=== PATIENT | male | born 1935 | race Caucasian/White ===

== ENCOUNTER 2018-06-26 12:37 | Inpatient (IN) ==
--- NOTE | 2018-06-26 12:57 | ED ---
HPI General Chief Complaint: Syncope Stated Complaint: hypertension Time Seen by Provider: 06/26/18 12:39 Source: patient and EMS Mode of arrival: EMS Limitations: no limitations History of Present Illness HPI Narrative: The patient is a 82-year-old male who presents to the emergency department via EMS for low blood pressure, lightheadedness, and dizziness. The patient has a history of recent AAA repair at [facility] in [place], [place]. The patient had a somewhat complicated course after the procedure and was subsequently placed at [facility]. The patient states he just got discharged yesterday. The patient states they did have trouble with his blood pressure in the hospital, states it would go "up and down ", he was taken off of Lopressor several days ago. The patient states he was discharged home yesterday, had some intermittent lightheadedness and dizziness throughout the day, and when the home health care nurse took his blood pressure was slightly low. The patient states he was lightheaded at that time, it is currently resolved. The patient does state he stumbled and fell, striking the left lateral rib cage yesterday with a surgical scars in place. He does note mild discomfort over the affected area but denies any significant bruising or bleeding. Symptoms are mild to moderate and intermittent. MD complaint: Reports dizziness and lightheadedness Onset (ago): minute(s) Timing: waxing/waning Description: Reports lightheadedness History of similar episodes: Yes History of trauma: Yes Severity: moderate Relieving factors: rest Exacerbating factors: position Related Data Previous Rx's Medication Instructions Recorded aspirin 81 mg PO DAILY 30 Days #30 tab 06/25/18 cholecalciferol (vitamin D3) 5,000 unit PO DAILY 30 Days #30 cap 06/25/18 digoxin 125 mcg PO DAILY 30 Days #30 tab 06/25/18 magnesium hydroxide [Milk of 30 ml PO Q12H PRN 30 Days ml 06/25/18 Magnesia] melatonin 5 mg PO HS PRN 30 Days tab 06/25/18 midodrine 10 mg PO TID@0700,1200,1700 30 06/25/18 Days tab oxybutynin chloride 5 mg PO BID 30 Days #60 tab 06/25/18 pantoprazole 40 mg PO DAILY 30 Days #30 tab 06/25/18 sennosides-docusate sodium [Senna 1 tab PO BID 30 Days #60 tab 06/25/18 Plus] tamsulosin 0.4 mg PO HS 30 Days #30 cap 06/25/18 warfarin [Coumadin] 5 mg PO DAILY@1600 30 Days tab 06/25/18 Allergies Allergy/AdvReac Type Severity Reaction Status Date / Time No Known Allergies Allergy Verified 06/04/18 19:43 Review of Systems ROS: all other systems reviewed are negative [facility] Social History Social History Substance History: No History of Abuse Second Hand Smoke Exposure: No Smoking Status: Former smoker Tobacco Type: Cigarettes How Often Do You Have a Drink Containing Alcohol: Never Recent Travel in [facility] within the Last 8 Weeks: No Recent Out of Country Travel within the Last 8 Weeks: No Immunization History Tetanus Immunization: Unsure Exam Narrative Exam Narrative: GENERAL: Awake, alert, very pleasant 82-year-old male who appears his stated age and is in no acute respiratory distress. SKIN: Focused skin assessment warm/dry. HEAD: Atraumatic. Normocephalic. EYES: Pupils equal and round. No scleral icterus. No injection or drainage. ENT: No nasal bleeding or discharge. Mucous membranes pink and moist. NECK: Trachea midline. No JVD. CARDIOVASCULAR: Regular rate and rhythm. Holosystolic murmur noted. Well- healed sternal scar. RESPIRATORY: No accessory muscle use. Clear to auscultation. Breath sounds equal bilaterally. GASTROINTESTINAL: Abdomen soft, healing scar in the left flank. Mild tenderness but no obvious ecchymosis or bleeding noted. MUSCULOSKELETAL: No obvious deformities. No clubbing. No cyanosis. No edema. LUCERO hose lower extremities bilaterally. NEUROLOGICAL: Awake and alert. No obvious cranial nerve deficits. Motor grossly within normal limits. Normal speech. PSYCHIATRIC: Appropriate mood and affect; insight and judgment normal. Course Initial Documented Vital Signs Temperature 97.9 F 06/26/18 12:51 Pulse Rate 75 06/26/18 12:51 Respiratory Rate 17 06/26/18 12:51 Blood Pressure 127/62 06/26/18 12:51 Pulse Oximetry 99 06/26/18 12:51 Last Documented Vital Signs Temperature 97.3 F L 06/27/18 04:00 Pulse Rate 93 H 06/27/18 04:00 Respiratory Rate 18 06/27/18 04:00 Blood Pressure 160/71 H 06/27/18 04:00 Pulse Oximetry 94 L 06/27/18 04:00 Sign Out Sign Out Data: Patient Sign Out occurred on 06/26/18 at 15:56. Patient's care was discussed, and care was transferred from Ariel Contreras MD to Bahman Cole MD. Sign Out Comment: 82-year-old male with orthostatic hypotension, lightheadedness , and dizziness who is status post recent AAA repair if CT of the abdomen and pelvis reveals no hemorrhage or acute retroperitoneal hemorrhage, patient should be admitted for IV fluids and adjustment of his blood pressure medications. Last updated by Ariel Contreras MD at 06/26/18 15:00 Post-Handoff Eval: , dig level 1.3.Patient care assumed by me Dr. Cole from Dr. Contreras at 1500, this is an 82-year-old male presents to the emergency department orthostatic having significant weakness and fluctuating blood pressures ever since discharge from [facility] several weeks ago to our institution. The patient had AAA repair at [facility] by Dr. Restrepo on May 14, 2018. Apparently the patient's postoperative period was complicated and needed tube drainage of some bleeding. He had to have a reexploration as well to help control bleeding. Patient is unsure exactly where he is bleeding from but demonstrates to me the site of his tube drainage appears to be posterior and below the diaphragm and probably is draining the retroperitoneal space. The patient has received 1500 cc of normal saline in the emergency department but before that it was described to me the patient was having significant orthostatic symptoms and when he went from a lying to a sitting became pale cool diaphoretic and appeared as though he was in a pass out with heart rate increasing significantly. Patient does have an acute kidney injury with a creatinine of 1.7 today, his creatinine [facility] but it appears as though his baseline is closer to 1.1. Currently he is feeling better and appears well his blood pressure on my assessment is in the 150 systolic his heart rate is in the low 100s and high 90s. He is joking with me and appears to be in no obvious distress. His labs show a white count of 7, no left shift, electrolytes unremarkable, dig level of 1.3. Patient's other medications were reviewed, the patient is on Coumadin, tamsulosin, oxybutynin, Midrin. Initial plan was to follow-up with CAT scan if it shows no significant abnormality and the patient can be admitted to the hospital for acute kidney injury and gentle rehydration as well as management of his blood pressure medications. After review of the patient's CT scan of the abdomen the patient does have a retroperitoneal fluid collection radiologist thinks seroma. I have reviewed the films and this appears to abut the aorta. Certainly this could be postoperative seroma and the patient may be recovering normally however the patient should be discussed with the surgeon who knows him prior to admission to our hospital and we need to consider transferring the patient. Patient also has infiltrate and effusion of the left lower lobe. He has not had any cough congestion no fevers. According to patient he was supposed to follow-up with Dr. Abbott but has not yet established has an appointment with Dr. Restrepo in the near future. Dr. Abbott was on vacation given the upcoming holidays so I will discuss patient with Dr. Restrepo for further recommendations and possible transfer. After discussed with Dr. Restrepo he states that the patient could be followed up with Dr. Abbott or whoever is on-call for his service. The patient's preference is to stay locally as he does live here. Ultimately patient was discussed with Dr. Wolf who is on-call for the group and he is willing to follow the patient here as a patient in our opinion probably needs more medical turnips and a surgical intervention. He has received 1500 cc of fluid, will be discussed with DK. Medical Decision Making MDM Narrative Medical decision making narrative: IV was established, labs are drawn and sent, and the patient was placed on cardiac telemetry monitoring and continuous pulse oximetry monitoring. EKG was ordered and interpreted. CT of the abdomen and pelvis with IV contrast was ordered to evaluate for possible postoperative hemorrhage. The patient was placed on IV fluids and orthostatic vital signs were obtained. The patient's orthostatic vital signs were positive, when he went from lying to sitting his pulse went from the 80s-115, the patient's blood pressure dropped to a systolic near 100. The patient was unable to stand upright as he became diaphoretic and pale. Therefore, the patient was administered an IV fluid bolus. Medical Screen Exam Complete: Yes Emergency Medical Condition: Yes Differential Diagnosis Differential Diagnosis: Differential diagnosis includes medication side effect, orthostatic hypotension, symptomatic anemia, aortic stenosis, postoperative hemorrhage, retroperitoneal hemorrhage, arrhythmia, dehydration, acute kidney injury. Lab Data Result diagrams: 06/27/18 05:45 06/26/18 12:58 Lab Results 06/26/18 06/26/18 06/26/18 Range/Units 12:58 12:58 12:58 WBC 7.2 (4.0-11.0) th/mm3 RBC 3.51 L (4.50-5.90) mil/mm3 Hgb 11.3 L (13.0-17.0) gm/dL Hct 33.7 L (39.0-51.0) % MCV 95.9 (80.0-100.0) fL MCH 32.1 (27.0-34.0) pg MCHC 33.5 (32.0-36.0) % RDW 15.9 (11.6-17.2) % Plt Count 214 (150-450) th/mm3 MPV 8.1 (7.0-11.0) fL Neut % (Auto) 74.4 H (16.0-70.0) % Lymph % (Auto) 14.6 (9.0-44.0) % Casey % (Auto) 9.7 H (0.0-8.0) % Eos % (Auto) 0.5 (0.0-4.0) % Baso % (Auto) 0.8 (0.0-2.0) % Neut # (Auto) 5.3 (1.8-7.7) th/mm3 Lymph # (Auto) 1.0 (1.0-4.8) th/mm3 Casey # (Auto) 0.7 (0.0-0.9) th/mm3 Eos # (Auto) 0.0 (0.0-0.4) th/mm3 Baso # (Auto) 0.1 (0.0-0.2) th/mm3 WBC Differential . Differential Comment Auto diff final PT 28.3 H (9.8-11.6) sec INR 2.8 Ratio APTT 37.3 H (23.4-31.7) sec Sodium 139 (136-145) meq/L Potassium 4.6 (3.5-5.1) meq/L Chloride 109 H (98-107) meq/L Carbon Dioxide 23.8 (21.0-32.0) meq/L Anion Gap 6 (5-15) meq/L BUN 21 H (7-18) mg/dL Creatinine 1.74 H (0.60-1.30) mg/dL Estimated GFR 38 L (>89) mL/min Random Glucose 138 H (74-106) mg/dL Calcium 8.2 L (8.5-10.1) mg/dL Magnesium 1.9 (1.5-2.5) mg/dL Total Bilirubin 0.3 (0.2-1.0) mg/dL AST 36 (15-37) U/L ALT 20 (12-78) U/L Alkaline Phosphatase 150 H (45-117) U/L Total Protein 6.4 (6.4-8.2) g/dL Albumin 2.6 L (3.4-5.0) g/dL Digoxin 1.3 (0.8-2.0) ng/mL 06/27/18 06/27/18 Range/Units 05:45 05:45 WBC 4.9 (4.0-11.0) th/mm3 RBC 3.22 L (4.50-5.90) mil/mm3 Hgb 10.2 L (13.0-17.0) gm/dL Hct 30.7 L (39.0-51.0) % MCV 95.2 (80.0-100.0) fL MCH 31.6 (27.0-34.0) pg MCHC 33.2 (32.0-36.0) % RDW 15.8 (11.6-17.2) % Plt Count 201 (150-450) th/mm3 MPV 8.0 (7.0-11.0) fL Neut % (Auto) 62.0 (16.0-70.0) % Lymph % (Auto) 25.4 (9.0-44.0) % Casey % (Auto) 10.3 H (0.0-8.0) % Eos % (Auto) 1.4 (0.0-4.0) % Baso % (Auto) 0.9 (0.0-2.0) % Neut # (Auto) 3.0 (1.8-7.7) th/mm3 Lymph # (Auto) 1.3 (1.0-4.8) th/mm3 Casey # (Auto) 0.5 (0.0-0.9) th/mm3 Eos # (Auto) 0.1 (0.0-0.4) th/mm3 Baso # (Auto) 0.0 (0.0-0.2) th/mm3 WBC Differential . Differential Comment Auto diff final PT 29.4 H (9.8-11.6) sec INR 2.9 Ratio APTT (23.4-31.7) sec Sodium (136-145) meq/L Potassium (3.5-5.1) meq/L Chloride (98-107) meq/L Carbon Dioxide (21.0-32.0) meq/L Anion Gap (5-15) meq/L BUN (7-18) mg/dL Creatinine (0.60-1.30) mg/dL Estimated GFR (>89) mL/min Random Glucose (74-106) mg/dL Calcium (8.5-10.1) mg/dL Magnesium (1.5-2.5) mg/dL Total Bilirubin (0.2-1.0) mg/dL AST (15-37) U/L ALT (12-78) U/L Alkaline Phosphatase (45-117) U/L Total Protein (6.4-8.2) g/dL Albumin (3.4-5.0) g/dL Digoxin (0.8-2.0) ng/mL Imaging Data Radiologist's impression: Ribs X-Ray 06/26/18 00:00 CONCLUSION: There are subtle nondisplaced fractures involving the posterior lateral eighth and ninth ribs with subtle cortical breaks. Abdomen/Pelvis CT 06/26/18 12:51 CONCLUSION: 1. Lower lobe airspace disease with loculated parapneumonic effusion 2. Postsurgical seroma in the left retroperitoneum extending from the pelvic sidewall to the aorta following explantation of an aortic stent graft. 3. Intact abdominal aorta status post repair. 4. Status post cholecystectomy and prostatectomy. 5. 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 Uncomplicated colonic diverticulosis. 7. Stable left renal cyst. Chest X-Ray 06/26/18 12:51 CONCLUSION: Persistent or recurrent left base infiltrate and effusion ECG Data EKG Prior to Arrival: No Attestation: I personally reviewed and interpreted this ECG as follows: Interpretation: EKG reveals normal sinus rhythm with a rate of 71. Q waves noted in lead III. Discharge Plan Discharge Disposition Patient Disposition: 30 Still Patient Discharge Condition Condition: Stable Discharge Details Diagnosis: Acute kidney injury, Orthostatic hypotension Physicians Team ED Provider: Bahman Cole Primary Care Provider: Wale Pineda Attending Provider: Zia Chaudhari Other Providers: Zia Wolf Discharge Interventions Interventions: ED Discharge Assessment Last Done: 06/26/18 19:09 Vital Signs Last Done: 06/26/18 18:00 Status ED Status: Left Department Discharge Information Discharge Date/Time: 06/26/18 19:10
[2018-06-26] MEDS ORDERED: Sod Chloride 0.9% Inj 1,000 ML IV.CONT SCH (13:00)
[2018-06-26 13:18] LABS: Baso # (Auto) 0.1 th/mm3 (0.0-0.2); Baso % (Auto) 0.8 % (0.0-2.0); Eos % (Auto) 0.5 % (0.0-4.0); Hematocrit 33.7 % (39.0-51.0); Hemoglobin 11.3 gm/dL (13.0-17.0); Lymph % (Auto) 14.6 % (9.0-44.0); Mean Corpuscular HGB Conc 33.5 % (32.0-36.0); Mean Corpuscular Hemoglobin 32.1 pg (27.0-34.0); Mean Corpuscular Volume 95.9 fL (80.0-100.0); Mean Platelet Volume 8.1 fL (7.0-11.0); Mono # (Auto) 0.7 th/mm3 (0.0-0.9); Mono % (Auto) 9.7 % (0.0-8.0); Neut # (Auto) 5.3 th/mm3 (1.8-7.7); Neut % (Auto) 74.4 % (16.0-70.0); Platelet Count 214 th/mm3 (150-450); Red Blood Count 3.51 mil/mm3 (4.50-5.90); Red Cell Distribution Width 15.9 % (11.6-17.2); White Blood Count 7.2 th/mm3 (4.0-11.0)
[2018-06-26 13:31] LABS: Activated Partial Thrombo Time 37.3 sec (23.4-31.7); INR 2.8 Ratio; Prothrombin Time 28.3 sec (9.8-11.6)
[2018-06-26 13:39] LABS: Alanine Aminotransferase 20 U/L (12-78)
[2018-06-26 13:53] LABS: Alkaline Phosphatase 150 U/L (45-117); Digoxin 1.3 ng/mL (0.8-2.0); Total Protein 6.4 g/dL (6.4-8.2)
--- NOTE | 2018-06-26 13:55 | XR ---
EXAM DATE: 06/26/2018 1:53 PM EST AGE/SEX: 82 years / Male INDICATIONS: Left side chest pains from fall yesterday. CLINICAL DATA: This is the patient's initial encounter. Patient reports that signs and symptoms have been present for 1 day and indicates a pain score of 4/10. MEDICAL/SURGICAL HISTORY: Aneurysm, abdominal. Abdominal aortic aneurysm repair. COMPARISON: [facility], CHEST 1V SINGLE AP, 06/12/2018. . FINDINGS: Persistent or recurrent left base infiltrate and effusion. Right lung is grossly clear. Cardiac conto urs are unchanged. Sternotomy wires noted. CONCLUSION: Persistent or recurrent left base infiltrate and effusion Electronically signed by: Leonardo Carlson MD 06/26/2018 1:54 PM EST
[2018-06-26] MEDS ORDERED: Sodium Chlor 0.9% Inj 500 ML IV.SIG SCH (14:00)
[2018-06-26 14:07] LABS: Albumin 2.6 g/dL (3.4-5.0); Anion Gap 6 meq/L (5-15); Blood Urea Nitrogen 21 mg/dL (7-18); Calcium 8.2 mg/dL (8.5-10.1); Carbon Dioxide 23.8 meq/L (21.0-32.0); Chloride 109 meq/L (98-107); Glomerular Filtration Rate 38 mL/min (>89); Glucose,Random 138 mg/dL (74-106); Sodium 139 meq/L (136-145)
[2018-06-26 14:08] LABS: Aspartate Aminotransferase 36 U/L (15-37); Magnesium 1.9 mg/dL (1.5-2.5); Potassium 4.6 meq/L (3.5-5.1)
--- NOTE | 2018-06-26 15:06 | CT ---
EXAM DATE: 06/26/2018 2:42 PM EST AGE/SEX: 82 years / Male INDICATIONS: Recent AAA repair, status post fall with syncopal episode. Left abdominal pain. CLINICAL DATA: This is the patient's initial encounter. Patient reports that signs and symptoms have been present for 2 days and indicates a pain score of 3/10. MEDICAL/SURGICAL HISTORY: Aneurysm, abdominal. Cardiovascular disease. Chronic renal insuffic iency. Abdominal aortic aneurysm repair. Appendectomy. CABG. hernia repair ORAL CONTRAST: No oral contrast ingested. RADIATION DOSE: 6.71 CTDI (mGy) COMPARISON: TLI, CTA AORTA W/ RUNOFF, 03/29/2018. . TECHNIQUE: Multiple contiguous axial images were obtained through the abdomen and pelvis following b olus infusion of 50 ml Visipaque 320 (iodixanol) nonionic water-soluble contrast as a single exam d ose. No oral contrast ingested. Using automated exposure control and adjustment of the mA and/or kV according to patient size, radiation dose was kept as low as reasonably achievable to obtain optimal diagnostic quality images. DICOM format image data is available electronically for review and compar eric. FINDINGS: Lower Lungs: Left lower lobe airspace disease with parapneumonic loculated effusions are noted. Liver: Simple hepatic cyst are noted. Liver texture is heterogeneous. Postcholecystectomy clips are n oted. There are no suspicious space-occupying lesions or biliary duct dilatation. Spleen: Homogeneous density without enlargement. Pancreas: Unremarkable without mass or calcification. Kidneys: Simple cyst in the mid to upper pole the left kidney measuring 2.6 cm is again noted. There is no evidence of hydronephrosis. There are no suspicious renal masses or evidence of nephrolithiasi s. Adrenal Glands: Unremarkable. Aorta: Postsurgical changes are identified following explantation of an aortic stent graft. There i s residual fluid identified tracking along posteriorly along the left perinephric space extending int o the retroperitoneum and lateral margin of the abdominal aorta. The repaired aorta appears intact. T he left common iliac artery is occluded. A right iliac stent is identified extending to the right com mon femoral artery. A right to left femoral femoral bypass graft is noted. Bowel/Mesentery: Numerous diverticula are present throughout the sigmoid colon. Intestinal tract is otherwise unremarkable. There are no acute inflammatory changes, significant ileus or free air. Abdominal Wall: Incisional scars are noted. Retroperitoneum: No evidence of adenopathy in the retrocrural, para-aortic, or deep pelvic regions. Bladder: Contours are smooth. Reproductive Organs: Postsurgical clips following prostatectomy are identified. Inguinal: Postsurgical changes following bypass are noted. There are no abnormal fluid collections o r lymphadenopathy. Bony Structures: Intact CONCLUSION: 1. Lower lobe airspace disease with loculated parapneumonic effusion 2. Postsurgical seroma in the left retroperitoneum extending from the pelvic sidewall to the aorta f ollowing explantation of an aortic stent graft. 3. Intact abdominal aorta status post repair. 4. Status post cholecystectomy and prostatectomy. 5. 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 Uncomplicated colonic diverticulosis. 7. Stable left renal cyst. Electronically signed by: Sang Ferguson MD 06/26/2018 3:04 PM EST
--- NOTE | 2018-06-26 17:35 | P.HPFP ---
History of Present Illness Primary Care Physician: Wale Pineda MD <Zia Chaudhari K - 06/27/18 12:17> Wale Pineda MD <Rhoda Tang - 06/26/18 17:35> Chief Complaint: fall <DeepakpuneetIsaac hdzRhoda A - 06/26/18 20:20> History of Present Illness: Much of the information was gathered from chart review. 82 yo male with a PMH of recent AAA repair and 30 day rehab hospitalization who was just discharged from [facility] yesterday who returns to the ED after an episode of dizziness and a fall. He has a PMH of hypertension, CAD, CKD, hyperlipidemia, PVD. The patient reports that he did land on a coffee table when he fell. He broke the fall with his left side and reports pain on that side. He did not his his head or lose consciousness. He reports that he feels dizzy and lightheaded when he stands up. He feels unsteady at times. He does not feel like he spends or the room spins around him. He feels like he is sinking. He reports that he has had these "sinking spells" off and on for about 2 years. During his rehab stay, his discharge was complicated by orthostasis. He does take tamsulosin. History from AAA repair and [facility] hospitalization: Patient had a suprarenal abdominal aortic aneurysm repair in May.Postoperatively he had anemia and a retroperitoneal hematoma which required transfusion he also had a UTI and was treated with ceftriaxone. The patient was also found to have basilar consolidation and a left pleural pleural effusion which required chest tube placement at the time of hospitalization. During his surgery, he had a Guerrero catheter placed. He had a traumatic catheter removal with persistent bleeding. Urology was consulted and the hematuria was found to be secondary to anticoagulation. Patient was discharged to [facility] with a Guerrero catheter at that time and was to follow-up with urology as an outpatient. The patient reports that he had a guerrero placed intermittently while at [facility] but he does not have one now. He reports dysuria and denies hematuria. PMH: Urinary retention CAD CKD Hyperlipidemia Hypertension PVD PSH: Aortic valve replacement 1993 Hernia repair Prostate surgery Appendectomy CABG AAA repair Insertion of iliac artery stent Allergies: None Family Hx: Father: Rheumatic heart disease Social Hx: Tobacco: Former smoker Alcohol: Denies <Rhoda Tang 06/26/18 21:43> - Diagnosis (1) Fall (2) CKD (chronic kidney disease) (3) Hypertension, essential (4) Anemia (5) Hypotension (6) History of abdominal aortic aneurysm (AAA) repair (7) Urinary catheter complication (8) H/O mechanical aortic valve replacement <Zia Chaudhari 06/27/18 12:17> (1) Fall (2) CKD (chronic kidney disease) (3) Hypertension, essential (4) Anemia (5) Hypotension (6) History of abdominal aortic aneurysm (AAA) repair (7) Urinary catheter complication (8) H/O mechanical aortic valve replacement <Rhoda Tang 06/26/18 21:18> Inpatient Certification: I certify that the inpatient services were ordered in accordance with Medicare regulations governing the order. This includes certification that hospital inpatient services are reasonable and necessary and in the case of services not specified as inpatient-only under 42 CFR 419.22(n), that they are appropriately provided as inpatient services in accordance to with the 2-midnight benchmark under 43 CFR 412.3(e) <Zia Chaudhari 06/27/18 12:17> Review of Systems All other systems reviewed negative except as stated in HPI <Rhoda Tang 06/26/18 20:16> PMFSH - History History Provided By: Patient <Rhoda Tang 06/26/18 17:35> - Medical History Medical History: Medical History (Last Reviewed 06/26/18 @ 12:45 by Luciana Matthews RN) AAA (abdominal aortic aneurysm) Bradycardia CAD (coronary artery disease) CKD (chronic kidney disease) HLD (hyperlipidemia) HTN (hypertension) PVD (peripheral vascular disease) Retinal detachment Tachycardia <Zia Chaudhari 06/27/18 12:17> Medical History (Last Reviewed 06/26/18 @ 12:45 by Luciana Matthews RN) AAA (abdominal aortic aneurysm) Bradycardia CAD (coronary artery disease) CKD (chronic kidney disease) HLD (hyperlipidemia) HTN (hypertension) PVD (peripheral vascular disease) Retinal detachment Tachycardia <Rhoda Tang 06/26/18 17:35> - Surgical History Surgical History: Surgical History (Last Reviewed 06/26/18 @ 12:45 by Luciana Matthews, RN) Aortic valve replaced H/O hernia repair History of prostate surgery Hx of CABG Hx of appendectomy S/P abdominal aortic aneurysm repair S/P insertion of iliac artery stent <BrettjusticeZia Gigi - 06/27/18 12:17> Surgical History (Last Reviewed 06/26/18 @ 12:45 by Luciana Matthews, RN) Aortic valve replaced H/O hernia repair History of prostate surgery Hx of CABG Hx of appendectomy S/P abdominal aortic aneurysm repair S/P insertion of iliac artery stent <Rhoda Tang - 06/26/18 17:35> - Family History Family History: Family History (Last Reviewed 06/05/18 @ 10:32 by KYM Osborn) Father Rheumatic heart disease <BrettZia rendon - 06/27/18 12:17> Family History (Last Reviewed 06/05/18 @ 10:32 by KYM Osborn) Father Rheumatic heart disease <Rhoda Tang - 06/26/18 17:35> - Social History I have reviewed the patient's Social History: Yes <Rhoda Tang - 20:16> - Tobacco History Second Hand Smoke Exposure: No <Rhoda Tang - 06/26/18 17:35> Smoking Status: Former smoker <Rhoda Tang - 06/26/18 17:35> Tobacco Type: Cigarettes <Rhoda Tang - 06/26/18 17:35> - Alcohol History How Often Do You Have a Drink Containing Alcohol: Never <Rhoda Tang - 06/26/18 17:35> - Substance Use History Substance History: No History of Abuse <Rhoda Tang - 06/26/18 17:35> - Travel History Recent Travel in the [facility] Within the Last 8 Weeks: No <Rhoda Tang - 17:35> Recent Travel Out of the Country Within the Last 8 Weeks: No <Rhoda Tang - 06/26/18 17:35> - Immunization History Tetanus Immunization: Unsure <Rhoda Tang - 06/26/18 17:35> Medications and Allergies Allergies Allergy/AdvReac Type Severity Reaction Status Date / Time No Known Allergies Allergy Verified 06/04/18 19:43 <Zia Chaudhari - 06/27/18 12:17> Active Medications: Active Medications Acetaminophen (Tylenol) 650 mg PO Q4H PRN PRN Reason: Temp > 100.4 Aspirin (Aspirin Chew) 81 mg PO DAILY [facility] Last Admin: 06/27/18 08:41 Dose: 81 mg Digoxin (Lanoxin) 125 mcg PO DAILY [facility] Last Admin: 06/27/18 08:41 Dose: 125 mcg Labetalol HCl (Trandate) 100 mg PO BID PRN PRN Reason: SBP > 160 and/or DBP >90 Melatonin (Melatonin) 5 mg PO HS PRN PRN Reason: Insomnia Last Admin: 06/26/18 22:15 Dose: 5 mg Morphine Sulfate (Morphine Inj) 2 mg IV.PUSH Q4H PRN PRN Reason: pain Ondansetron HCl (Zofran Inj) 4 mg IV.PUSH Q6H PRN PRN Reason: NAUSEA OR VOMITING Pantoprazole Sodium (Protonix) 40 mg PO DAILY [facility] Last Admin: 06/27/18 08:41 Dose: 40 mg Senna/Docusate Sodium (Lubna-Colace) 1 tab PO BID [facility] Last Admin: 06/27/18 08:41 Dose: 1 tab Sodium Chloride (Ns Flush) 2 ml IV.FLUSH BID [facility] Last Admin: 06/27/18 08:41 Dose: Not Given Sodium Chloride (Ns Flush) 2 ml IV.FLUSH PRN PRN PRN Reason: FLUSH AFTER USING IV ACCESS Vitamin D (Vitamin D3) 5,000 unit PO DAILY [facility] Last Admin: 06/27/18 08:41 Dose: 5,000 unit Warfarin Sodium (Coumadin) 5 mg PO DAILY@1600 [facility] <Zia Chaudhari - 06/27/18 12:17> Active Medications Sodium Chloride (Ns Inj) 1,000 mls @ 125 mls/hr IV.CONT .Q8H [facility] Stop: 06/26/18 20:59 Last Admin: 06/26/18 12:58 Dose: 125 mls/hr <Rhoda Tang - 06/26/18 17:35> Exam Vital signs: Vital Signs 06/26/18 12:51 06/26/18 14:00 06/26/18 18:00 Temperature 97.9 F Pulse Rate 75 93 H 96 H Respiratory Rate 17 20 24 Blood Pressure 127/62 156/67 H Pulse Oximetry 99 97 99 06/26/18 18:47 06/26/18 20:00 06/26/18 20:40 Temperature 97.8 F Pulse Rate 98 H 95 H 103 H Respiratory Rate 18 18 Blood Pressure 162/74 H 167/72 H Pulse Oximetry 98 97 06/27/18 00:00 06/27/18 04:00 06/27/18 08:00 Temperature 97.3 F L 97.3 F L 97.7 F Pulse Rate 95 H 93 H 61 Respiratory Rate 18 18 16 Blood Pressure 133/60 160/71 H 164/72 H Pulse Oximetry 94 L 94 L 96 Intake & Output 06/26/18 06/27/18 06/27/18 18:59 06:59 18:59 Intake Total 500 / 500 2170 / 2170 Output Total 400 / 400 Balance 500 / 500 1770 / 1770 Weight 82.554 kg 78.2 kg Intake: IV 500 / 500 1750 / 1750 NS Inj 1,000 ML @ 100 mls/hr IV 1750 / 1750 .CONT .Q10H [facility] Rx#:[id number] NS Inj 500 ML @ 1000 mls/hr IV. 500 / 500 SIG BOLUS [facility] Rx#:[id number] Oral 420 / 420 Output: Urine 400 / 400 Other: Date of Last Bowel Movement 06/23/18 Weight On Admission 78.2 kg <Zia Chaudhari - 06/27/18 12:17> Vital Signs 06/26/18 12:51 06/26/18 14:00 Temperature 97.9 F Pulse Rate 75 93 H Respiratory Rate 17 20 Blood Pressure 127/62 156/67 H Pulse Oximetry 99 97 Intake & Output 06/25/18 06/26/18 06/26/18 18:59 06:59 18:59 Intake Total 500 / 500 Balance 500 / 500 Weight 82.554 kg Intake: IV 500 / 500 NS Inj 500 ML @ 1000 mls/hr IV. 500 / 500 SIG BOLUS BONIFACIO Rx#:[id number] <Rhoda Tang Soraya - 06/26/18 17:35> Narrative: GENERAL: Pleasant elderly man resting comfortably in hospital bed in no acute distress SKIN: No rashes. Cool and dry. HEAD: Atraumatic. Normocephalic. EYES: Pupils equal round and reactive. Extraocular motions intact. No scleral icterus. No injection or drainage. ENT: Nose without bleeding, purulent drainage or septal hematoma. Airway patent. NECK: Trachea midline. No lymphadenopathy. Supple, nontender. CARDIOVASCULAR: Regular rate and rhythm. Systolic mechanical click. RESPIRATORY: Clear to auscultation. Breath sounds equal bilaterally. No wheezes , rales, or rhonchi. GASTROINTESTINAL: Abdomen soft, diffusely tender to palpation on left side over his ribs. healing transverse scar over left side of abdomen, well healed scar in the midline of abdomen. Positive bowel sounds, nondistended. No hepato- splenomegaly, or palpable masses. MUSCULOSKELETAL: Extremities without edema. No calf tenderness. NEUROLOGICAL: Awake and alert. Motor and sensory grossly within normal limits. Normal speech. <Rhoda Tang Soraya - 06/26/18 21:10> Results - Labs Result diagrams: 06/27/18 05:45 06/27/18 05:45 <Zia Chaudhari - 06/27/18 12:17> Abnormal lab results 06/26/18 06/26/18 06/26/18 Range/Units 12:58 12:58 12:58 RBC 3.51 L (4.50-5.90) mil/mm3 Hgb 11.3 L (13.0-17.0) gm/dL Hct 33.7 L (39.0-51.0) % Neut % (Auto) 74.4 H (16.0-70.0) % Mclean % (Auto) 9.7 H (0.0-8.0) % PT 28.3 H (9.8-11.6) sec APTT 37.3 H (23.4-31.7) sec Chloride 109 H (98-107) meq/L BUN 21 H (7-18) mg/dL Creatinine 1.74 H (0.60-1.30) mg/dL Estimated GFR 38 L (>89) mL/min Random Glucose 138 H (74-106) mg/dL Calcium 8.2 L (8.5-10.1) mg/dL Alkaline Phosphatase 150 H (45-117) U/L Albumin 2.6 L (3.4-5.0) g/dL Urine Clarity (Clear) Urine Occult Blood (Negative) Ur Leukocyte Esterase (Negative) Urine RBC (0-3) /hpf Urine WBC (0-5) /hpf Urine Bacteria (None) /hpf Urine Mucus (Occasional) /lpf 06/27/18 06/27/18 06/27/18 Range/Units 05:30 05:45 05:45 RBC 3.22 L (4.50-5.90) mil/mm3 Hgb 10.2 L (13.0-17.0) gm/dL Hct 30.7 L (39.0-51.0) % Neut % (Auto) (16.0-70.0) % Mclean % (Auto) 10.3 H (0.0-8.0) % PT (9.8-11.6) sec APTT (23.4-31.7) sec Chloride 110 H (98-107) meq/L BUN (7-18) mg/dL Creatinine (0.60-1.30) mg/dL Estimated GFR 57 L (>89) mL/min Random Glucose (74-106) mg/dL Calcium 8.1 L (8.5-10.1) mg/dL Alkaline Phosphatase (45-117) U/L Albumin (3.4-5.0) g/dL Urine Clarity Hazy H (Clear) Urine Occult Blood Small H (Negative) Ur Leukocyte Esterase Large H (Negative) Urine RBC 6 H (0-3) /hpf Urine WBC 68 H (0-5) /hpf Urine Bacteria Few H (None) /hpf Urine Mucus Few H (Occasional) /lpf 06/27/18 Range/Units 05:45 RBC (4.50-5.90) mil/mm3 Hgb (13.0-17.0) gm/dL Hct (39.0-51.0) % Neut % (Auto) (16.0-70.0) % Mclean % (Auto) (0.0-8.0) % PT 29.4 H (9.8-11.6) sec APTT (23.4-31.7) sec Chloride (98-107) meq/L BUN (7-18) mg/dL Creatinine (0.60-1.30) mg/dL Estimated GFR (>89) mL/min Random Glucose (74-106) mg/dL Calcium (8.5-10.1) mg/dL Alkaline Phosphatase (45-117) U/L Albumin (3.4-5.0) g/dL Urine Clarity (Clear) Urine Occult Blood (Negative) Ur Leukocyte Esterase (Negative) Urine RBC (0-3) /hpf Urine WBC (0-5) /hpf Urine Bacteria (None) /hpf Urine Mucus (Occasional) /lpf Short CBC 06/26/18 06/27/18 Range/Units 12:58 05:45 WBC 7.2 4.9 (4.0-11.0) th/mm3 Hgb 11.3 L 10.2 L (13.0-17.0) gm/dL Hct 33.7 L 30.7 L (39.0-51.0) % Plt Count 214 201 (150-450) th/mm3 [facility] 06/26/18 06/27/18 12:58 05:45 Sodium 139 142 Potassium 4.6 3.9 Chloride 109 H 110 H Carbon Dioxide 23.8 24.4 BUN 21 H 16 Creatinine 1.74 H 1.22 Calcium 8.2 L 8.1 L Liver Function 06/26/18 Range/Units 12:58 Total Bilirubin 0.3 (0.2-1.0) mg/dL AST 36 (15-37) U/L ALT 20 (12-78) U/L Alkaline Phosphatase 150 H (45-117) U/L Albumin 2.6 L (3.4-5.0) g/dL Urine 06/27/18 Range/Units 05:30 Urine Color Yellow (Yellw/Straw) Urine Clarity Hazy H (Clear) Urine pH 5.0 (5.0-8.5) Ur Specific [place] 1.019 (1.002-1.035) Urine Protein Negative (Neg-Trace) mg/dL Urine Glucose (UA) Negative (Negative) mg/dL <Zia Chaudhari - 06/27/18 12:17> Abnormal lab results 06/26/18 06/26/18 06/26/18 Range/Units 12:58 12:58 12:58 RBC 3.51 L (4.50-5.90) mil/mm3 Hgb 11.3 L (13.0-17.0) gm/dL Hct 33.7 L (39.0-51.0) % Neut % (Auto) 74.4 H (16.0-70.0) % Mclean % (Auto) 9.7 H (0.0-8.0) % PT 28.3 H (9.8-11.6) sec APTT 37.3 H (23.4-31.7) sec Chloride 109 H (98-107) meq/L BUN 21 H (7-18) mg/dL Creatinine 1.74 H (0.60-1.30) mg/dL Estimated GFR 38 L (>89) mL/min Random Glucose 138 H (74-106) mg/dL Calcium 8.2 L (8.5-10.1) mg/dL Alkaline Phosphatase 150 H (45-117) U/L Albumin 2.6 L (3.4-5.0) g/dL Short CBC 06/26/18 Range/Units 12:58 WBC 7.2 (4.0-11.0) th/mm3 Hgb 11.3 L (13.0-17.0) gm/dL Hct 33.7 L (39.0-51.0) % Plt Count 214 (150-450) th/mm3 BMP 06/26/18 12:58 Sodium 139 Potassium 4.6 Chloride 109 H Carbon Dioxide 23.8 BUN 21 H Creatinine 1.74 H Calcium 8.2 L Liver Function 06/26/18 Range/Units 12:58 Total Bilirubin 0.3 (0.2-1.0) mg/dL AST 36 (15-37) U/L ALT 20 (12-78) U/L Alkaline Phosphatase 150 H (45-117) U/L Albumin 2.6 L (3.4-5.0) g/dL <Rhoda Tang - 06/26/18 17:35> - Imaging Impressions Ribs X-Ray 06/26/18 00:00 CONCLUSION: There are subtle nondisplaced fractures involving the posterior lateral eighth and ninth ribs with subtle cortical breaks. Abdomen/Pelvis CT 06/26/18 12:51 CONCLUSION: 1. Lower lobe airspace disease with loculated parapneumonic effusion 2. Postsurgical seroma in the left retroperitoneum extending from the pelvic sidewall to the aorta following explantation of an aortic stent graft. 3. Intact abdominal aorta status post repair. 4. Status post cholecystectomy and prostatectomy. 5. 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 Uncomplicated colonic diverticulosis. 7. Stable left renal cyst. Chest X-Ray 06/26/18 12:51 CONCLUSION: Persistent or recurrent left base infiltrate and effusion <Zia Chaudhari K - 06/27/18 12:17> Impressions Abdomen/Pelvis CT 06/26/18 12:51 CONCLUSION: 1. Lower lobe airspace disease with loculated parapneumonic effusion 2. Postsurgical seroma in the left retroperitoneum extending from the pelvic sidewall to the aorta following explantation of an aortic stent graft. 3. Intact abdominal aorta status post repair. 4. Status post cholecystectomy and prostatectomy. 5. 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 Uncomplicated colonic diverticulosis. 7. Stable left renal cyst. Chest X-Ray 06/26/18 12:51 CONCLUSION: Persistent or recurrent left base infiltrate and effusion <Rhoda Tang - 06/26/18 17:35> Caprini VTE Risk Assessment Caprini VTE Risk Assessment: Moderate/High Risk (score >= 2) <Rhoda Tang - 06/26/18 20:16> Caprini Risk Assessment Model: Point Value = 1 Point Value = 2 Point Value = 3 Point Value = 5 Age 41-60 Minor surgery BMI > 25 kg/m2 Swollen legs Varicose veins or History of unexplained or recurrent spontaneous Oral contraceptives or hormone replacement Sepsis (< 1 month) Serious lung disease, including pneumonia (< 1 month) Abnormal pulmonary function Acute myocardial infarction Congestive heart failure (< 1 month) History of inflammatory bowel disease Medical patient at bed rest Age 61-74 Arthroscopic surgery Major open surgery (> 45 min) Laparoscopic surgery (> 45 min) Malignancy Confined to bed (> 72 hours) Immobilizing plaster cast Central venous access Age >= 75 History of VTE Family history of VTE Factor V Leiden Prothrombin [id number] Lupus anticoagulant Anticardiolipin antibodies Elevated serum homocysteine Heparin-induced thrombocytopenia Other congenital or acquired thrombophilia Stroke (< 1 month) Elective arthroplasty Hip, pelvis, or leg fracture Acute spinal cord injury (< 1 month) <Zia Chaudhari - 06/27/18 12:17> Point Value = 1 Point Value = 2 Point Value = 3 Point Value = 5 Age 41-60 Minor surgery BMI > 25 kg/m2 Swollen legs Varicose veins or History of unexplained or recurrent spontaneous Oral contraceptives or hormone replacement Sepsis (< 1 month) Serious lung disease, including pneumonia (< 1 month) Abnormal pulmonary function Acute myocardial infarction Congestive heart failure (< 1 month) History of inflammatory bowel disease Medical patient at bed rest Age 61-74 Arthroscopic surgery Major open surgery (> 45 min) Laparoscopic surgery (> 45 min) Malignancy Confined to bed (> 72 hours) Immobilizing plaster cast Central venous access Age >= 75 History of VTE Family history of VTE Factor V Leiden Prothrombin [id number] Lupus anticoagulant Anticardiolipin antibodies Elevated serum homocysteine Heparin-induced thrombocytopenia Other congenital or acquired thrombophilia Stroke (< 1 month) Elective arthroplasty Hip, pelvis, or leg fracture Acute spinal cord injury (< 1 month) <Rhoda Tang - 06/26/18 17:35> Prophylaxis Regimen: Total Risk Factor Score Risk Level Prophylaxis Regimen 0-1 Low Early ambulation 2 Moderate Order ONE of the following: *Sequential Compression Device (SCD) *Heparin 5000 units SQ BID 3-4 Higher Order ONE of the following medications: *Heparin 5000 units SQ TID *Enoxaparin/Lovenox 40 mg SQ daily (WT < 150 kg, CrCl > 30 mL/min) *Enoxaparin/Lovenox 30 mg SQ daily (WT < 150 kg, CrCl > 10-29 mL/min) *Enoxaparin/Lovenox 30 mg SQ BID (WT < 150 kg, CrCl > 30 mL/min) AND/OR *Sequential Compression Device (SCD) 5 or more Highest Order ONE of the following medications: *Heparin 5000 units SQ TID (Preferred with Epidurals) *Enoxaparin/Lovenox 40 mg SQ daily (WT < 150 kg, CrCl > 30 mL/min) *Enoxaparin/Lovenox 30 mg SQ daily (WT < 150 kg, CrCl > 10-29 mL/min) *Enoxaparin/Lovenox 30 mg SQ BID (WT < 150 kg, CrCl > 30 mL/min) AND *Sequential Compression Device (SCD) <Zia Chaudhari - 06/27/18 12:17> Total Risk Factor Score Risk Level Prophylaxis Regimen 0-1 Low Early ambulation 2 Moderate Order ONE of the following: *Sequential Compression Device (SCD) *Heparin 5000 units SQ BID 3-4 Higher Order ONE of the following medications: *Heparin 5000 units SQ TID *Enoxaparin/Lovenox 40 mg SQ daily (WT < 150 kg, CrCl > 30 mL/min) *Enoxaparin/Lovenox 30 mg SQ daily (WT < 150 kg, CrCl > 10-29 mL/min) *Enoxaparin/Lovenox 30 mg SQ BID (WT < 150 kg, CrCl > 30 mL/min) AND/OR *Sequential Compression Device (SCD) 5 or more Highest Order ONE of the following medications: *Heparin 5000 units SQ TID (Preferred with Epidurals) *Enoxaparin/Lovenox 40 mg SQ daily (WT < 150 kg, CrCl > 30 mL/min) *Enoxaparin/Lovenox 30 mg SQ daily (WT < 150 kg, CrCl > 10-29 mL/min) *Enoxaparin/Lovenox 30 mg SQ BID (WT < 150 kg, CrCl > 30 mL/min) AND *Sequential Compression Device (SCD) <Rhoda Tang - 06/26/18 17:35> Assessment and Plan - Assessment (1) Fall Code(s): W19.XXXA - Unspecified fall, initial encounter Status: Acute (2) CKD (chronic kidney disease) Code(s): N18.9 - Chronic kidney disease, unspecified Status: Acute (3) Hypertension, essential Code(s): I10 - Essential (primary) hypertension Status: Chronic (4) Anemia Code(s): D64.9 - Anemia, unspecified Status: Acute (5) Hypotension Code(s): I95.9 - Hypotension, unspecified Status: Acute (6) History of abdominal aortic aneurysm (AAA) repair Code(s): Z98.890 - Other specified postprocedural states Status: Acute (7) Urinary catheter complication Code(s): T83.9XXA - Unspecified complication of genitourinary prosthetic device , implant and graft, initial encounter Status: Acute Onset Date: ~05/23/18 (8) H/O mechanical aortic valve replacement Code(s): Z95.2 - Presence of prosthetic heart valve Status: Chronic <Zia Chaudhari - 06/27/18 12:17> (1) Fall Code(s): W19.XXXA - Unspecified fall, initial encounter Status: Acute Plan: Patient who fell at home after an episode of dizziness. He landed on his left side hitting a table on his way to the floor. These episodes of dizziness have been occurring for about 2 years. This could be a side effect of medication versus deconditioning after procedure versus cardiac etiology versus hypovolemia versus BPPV. - EKG- normal sinus rhythm - Echocardiogram to r/o cardiac etiology of dizziness - Rib XR due to point tenderness on exam :There are subtle nondisplaced fractures involving the posterior lateral eighth and ninth ribs with subtle cortical breaks. - Hold tamsulosin, oxybutinin, and midodrine - PT eval (2) CKD (chronic kidney disease) Code(s): N18.9 - Chronic kidney disease, unspecified Status: Acute Plan: Patient has a history of CKD. Creatinine is 1.74 on admission. -Gentle fluids at 100 ml/hour -Continue to monitor -Avoid nephrotoxic medications (3) Hypertension, essential Code(s): I10 - Essential (primary) hypertension Status: Chronic Plan: -Hold midodrine -Labetalol 100 mg PO as needed for blood pressures greater than 150/90 -Control pain with morphine 2 mg IV Q4H (4) Anemia Code(s): D64.9 - Anemia, unspecified Status: Acute Plan: - Hemoglobin stable at 11.3 -Monitor (5) Hypotension Code(s): I95.9 - Hypotension, unspecified Status: Acute Plan: - Hold tamsulosin - Monitor - Gentle fluids NS @ 100 ml/hour (6) History of abdominal aortic aneurysm (AAA) repair Code(s): Z98.890 - Other specified postprocedural states Status: Acute Plan: -Consult vascular surgery (7) Urinary catheter complication Code(s): T83.9XXA - Unspecified complication of genitourinary prosthetic device , implant and graft, initial encounter Status: Acute Onset Date: ~05/23/18 Plan: - UA and reflex culture - Hold tamsulosin - Monitor I and O (8) H/O mechanical aortic valve replacement Code(s): Z95.2 - Presence of prosthetic heart valve Status: Chronic Plan: - Continue warfarin 5 mg daily - INR 2.8 <Rhoda Tang - 06/26/18 21:18> - Assessment and Plan Fluids:NS @ 100 mls/hour Electrolyte: monitor Nutrition: cardiac diet DVT PPx: continue home warfarin GI PPx: Continue home pantoprazole <Rhoda Tang - 06/26/18 20:16> Discussed Condition With: Dr. Chaudhari and Dr. aM <Rhoda Tang - 06/26/18 20:16> - Attending Attestation The exam, history, and the medical decision-making described in the above note were completed with the assistance of the resident physician. I reviewed and agree with the findings presented. I attest that I had a [id number] encounter with the patient on the same day, and personally performed and documented my assessment and findings in the medical record. I was present for resident history and physical on 06.26. See my admission note under notes section and progress note from 06/27 for updates <Zia Chaudhari - 06/27/18 12:17>
[2018-06-26] MEDS ORDERED: Bisacodyl 10 MG Supp RECTAL PRN (18:41)
[2018-06-26] MEDS ORDERED: Sodium Chloride 0.9% 2 ML Flush PRN IV.FLUSH (18:50)
--- NOTE | 2018-06-26 19:11 | XR ---
EXAM DATE: 06/26/2018 7:00 PM EST AGE/SEX: 82 years / Male INDICATIONS: Left rib pain post fall. CLINICAL DATA: This is the patient's initial encounter. Patient reports that signs and symptoms have been present for 2 days and indicates a pain score of 8/10. MEDICAL/SURGICAL HISTORY: . Aneurysm, abdominal. CABG. Abdominal aortic aneurysm repair. [place] [facility] [place]AST[place] 06/26/2018. . FINDINGS: There are subtle nondisplaced fractures involving the posterior lateral eighth and ninth ribs. No rufus tructive lesions or areas of periosteal thickening are seen. Expiratory view of the chest is negativ e for pneumothorax. The mediastinal structures are midline. The patient is status post median sterno guru. There are multiple surgical robert in the abdomen. Atherosclerotic changes are present in the aorta. There is diffuse osteopenia. CONCLUSION: There are subtle nondisplaced fractures involving the posterior lateral eighth and ninth ribs with meehan btle cortical breaks. Electronically signed by: Zia Vargas MD 06/26/2018 7:10 PM EST
[2018-06-26] MEDS ORDERED: Morphine Inj 4 MG/ML Vial IV.PUSH PRN (20:06)
[2018-06-26] MEDS: Sod Chloride 0.9% Inj 1,000 ML IV.CONT SCH (20:26)
[2018-06-26] MEDS: Senna/Docusate Sodium 8.6/50 MG Tablet PO SCH (20:27)
[2018-06-26] MEDS: Sodium Chloride 0.9% 2 ML Flush BID IV.FLUSH SCH (20:27)
[2018-06-26] MEDS ORDERED: Labetalol 100 MG Tablet PO ONE (21:00)
[2018-06-26] MEDS: Melatonin 5 MG Tablet PO PRN (22:15)
[2018-06-27 06:21] LABS: Baso % (Auto) 0.9 % (0.0-2.0); Eos # (Auto) 0.1 th/mm3 (0.0-0.4); Eos % (Auto) 1.4 % (0.0-4.0); Hematocrit 30.7 % (39.0-51.0); Hemoglobin 10.2 gm/dL (13.0-17.0); Lymph # (Auto) 1.3 th/mm3 (1.0-4.8); Lymph % (Auto) 25.4 % (9.0-44.0); Mean Corpuscular HGB Conc 33.2 % (32.0-36.0); Mean Corpuscular Hemoglobin 31.6 pg (27.0-34.0); Mean Corpuscular Volume 95.2 fL (80.0-100.0); Mono # (Auto) 0.5 th/mm3 (0.0-0.9); Mono % (Auto) 10.3 % (0.0-8.0); Platelet Count 201 th/mm3 (150-450); Red Blood Count 3.22 mil/mm3 (4.50-5.90); Red Cell Distribution Width 15.8 % (11.6-17.2); White Blood Count 4.9 th/mm3 (4.0-11.0)
[2018-06-27] MEDS: Sod Chloride 0.9% Inj 1,000 ML IV.CONT SCH (06:23)
[2018-06-27 06:25] LABS: INR 2.9 Ratio; Prothrombin Time 29.4 sec (9.8-11.6)
[2018-06-27 06:43] LABS: Calcium 8.1 mg/dL (8.5-10.1); Carbon Dioxide 24.4 meq/L (21.0-32.0); Potassium 3.9 meq/L (3.5-5.1)
[2018-06-27] MEDS: Digoxin 125 MCG Tablet PO SCH (08:41)
[2018-06-27] MEDS: Sodium Chloride 0.9% 2 ML Flush BID IV.FLUSH SCH ×2 (08:41→20:11)
[2018-06-27] MEDS: Senna/Docusate Sodium 8.6/50 MG Tablet PO SCH ×2 (08:41→20:11)
[2018-06-27 09:04] LABS: Bacteria,Urine Few /hpf; Bilirubin,Urine Negative (Negative); Clarity,Urine Hazy (Clear); Color,Urine Yellow (Yellw/Straw); Glucose,Urine (UA) Negative (Negative); Hyaline Casts,Urine 3 /lpf (0-3); Leukocyte Esterase,Urine Large (Negative); Mucus,Urine Few /lpf (Occasional); Nitrite,Urine Negative (Negative); Renal Epithelial Cells,Urine <1 /hpf; Specific Gravity,Urine 1.019 (1.002-1.035); Squamous Epithelial Cell,Urine 1 /hpf (0-5)
--- NOTE | 2018-06-27 11:24 | P.CONVS ---
History of Present Illness Service: Vascular surgery Consult date: 06/27/18 Primary Care Provider: Wale Pineda MD Chief Complaint: fall History of Present Illness: 82-year-old male with a past medical history of pararenal abdominal aortic aneurysm who underwent open repair approximately 6 weeks ago. The surgery was complicated with a retroperitoneal hematoma that would require blood transfusion. Patient was discharged home from rehab and he had an episode of orthostatic hypotension due to dehydration. He was admitted to the hospital for medical management. Patient denies any fever chills. Patient denies any chest pain or shortness of breath. Review of Systems All other systems reviewed negative except as stated in HPI [facility] - History History Provided By: Patient - Medical History Medical History: Medical History (Last Reviewed 06/27/18 @ 07:33 by Zia Burton) AAA (abdominal aortic aneurysm) Bradycardia CAD (coronary artery disease) CKD (chronic kidney disease) HLD (hyperlipidemia) HTN (hypertension) PVD (peripheral vascular disease) Retinal detachment Tachycardia - Surgical History Surgical History: Surgical History (Last Reviewed 06/27/18 @ 07:33 by Zia Burton) Aortic valve replaced H/O hernia repair History of prostate surgery Hx of CABG Hx of appendectomy S/P abdominal aortic aneurysm repair S/P insertion of iliac artery stent - Family History Family History: Family History (Last Reviewed 06/05/18 @ 10:32 by KYM Osborn) Father Rheumatic heart disease - Tobacco History Second Hand Smoke Exposure: No Tobacco Use In Past 30 Days: No Smoking Status: Former smoker Tobacco Type: Cigarettes - Alcohol History How Often Do You Have a Drink Containing Alcohol: Never - Substance Use History Substance History: No History of Abuse - Travel History Recent Travel in the [place] Within the Last 8 Weeks: No Recent Travel Out of the Country Within the Last 8 Weeks: No - Immunization History Tetanus Immunization: Unsure Hx Influenza Vaccine This Season: Yes Medications and Allergies Active Medications: Active Medications Acetaminophen (Tylenol) 650 mg PO Q4H PRN PRN Reason: Temp > 100.4 Al Hydroxide/Mg Hydroxide (Milk Of Magnesia Liq) 30 ml PO Q12H PRN PRN Reason: Mild Constipation Aspirin (Aspirin Chew) 81 mg PO DAILY [facility] Last Admin: 06/27/18 08:41 Dose: 81 mg Bisacodyl (Dulcolax Supp) 10 mg RECTAL DAILY PRN PRN Reason: SEVERE CONSITIPATION Digoxin (Lanoxin) 125 mcg PO DAILY [facility] Last Admin: 06/27/18 08:41 Dose: 125 mcg Sodium Chloride (Ns Inj) 1,000 mls @ 100 mls/hr IV.CONT .Q10H [facility] Last Admin: 06/27/18 06:23 Dose: 100 mls/hr Lactulose (Lactulose Liq) 30 ml PO DAILY PRN PRN Reason: SEVERE CONSITIPATION Melatonin (Melatonin) 5 mg PO HS PRN PRN Reason: Insomnia Last Admin: 06/26/18 22:15 Dose: 5 mg Morphine Sulfate (Morphine Inj) 2 mg IV.PUSH Q4H PRN PRN Reason: pain Ondansetron HCl (Zofran Inj) 4 mg IV.PUSH Q6H PRN PRN Reason: NAUSEA OR VOMITING Pantoprazole Sodium (Protonix) 40 mg PO DAILY [facility] Last Admin: 06/27/18 08:41 Dose: 40 mg Senna/Docusate Sodium ([place]ub[place]-Colace) 1 tab PO BID [facility] Last Admin: 06/27/18 08:41 Dose: 1 tab Sennosides (Senokot) 17.2 mg PO Q12H PRN PRN Reason: Moderate Constipation Sodium Chloride (Ns Flush) 2 ml IV.FLUSH BID [facility] Last Admin: 06/27/18 08:41 Dose: Not Given Sodium Chloride (Ns Flush) 2 ml IV.FLUSH PRN PRN PRN Reason: FLUSH AFTER USING IV ACCESS Vitamin D (Vitamin D3) 5,000 unit PO DAILY [facility] Last Admin: 06/27/18 08:41 Dose: 5,000 unit Warfarin Sodium (Coumadin) 5 mg PO DAILY@1600 [facility] Allergies Allergy/AdvReac Type Severity Reaction Status Date / Time No Known Allergies Allergy Verified 06/04/18 19:43 Physical Exam Vital Signs / I&O: Vital Signs 06/26/18 12:51 06/26/18 14:00 06/26/18 18:00 Temperature 97.9 F Pulse Rate 75 93 H 96 H Respiratory Rate 17 20 24 Blood Pressure 127/62 156/67 H Pulse Oximetry 99 97 99 06/26/18 18:47 06/26/18 20:00 06/26/18 20:40 Temperature 97.8 F Pulse Rate 98 H 95 H 103 H Respiratory Rate 18 18 Blood Pressure 162/74 H 167/72 H Pulse Oximetry 98 97 06/27/18 00:00 06/27/18 04:00 06/27/18 08:00 Temperature 97.3 F L 97.3 F L 97.7 F Pulse Rate 95 H 93 H 70 Respiratory Rate 18 18 16 Blood Pressure 133/60 160/71 H 164/72 H Pulse Oximetry 94 L 94 L 96 Intake & Output 06/26/18 06/27/18 06/27/18 18:59 06:59 18:59 Intake Total 500 / 500 2170 / 2170 Output Total 400 / 400 Balance 500 / 500 1770 / 1770 Weight 82.554 kg 78.2 kg Intake: IV 500 / 500 1750 / 1750 NS Inj 1,000 ML @ 100 mls/hr IV 1750 / 1750 .CONT .Q10H [facility] Rx#:[id number] NS Inj 500 ML @ 1000 mls/hr IV. 500 / 500 SIG BOLUS [facility] Rx#:[id number] Oral 420 / 420 Output: Urine 400 / 400 Other: Date of Last Bowel Movement 06/23/18 Weight On Admission 78.2 kg Neuro: Alert awake oriented x3, no neurological deficits HEENT: Normocephalic atraumatic Neck: Supple Heart: S1-S2 Lungs: Clear to auscultation bilaterally Abdomen: Soft nontender nondistended. Left thoracoabdominal incision is healing appropriately Vascular: Palpable femoral pulses bilaterally Laboratory Results - last 24 hr 06/26/18 06/26/18 06/26/18 12:58 12:58 12:58 WBC 7.2 RBC 3.51 L Hgb 11.3 L Hct 33.7 L MCV 95.9 MCH 32.1 MCHC 33.5 RDW 15.9 Plt Count 214 MPV 8.1 Neut % (Auto) 74.4 H Lymph % (Auto) 14.6 [place] % (Auto) 9.7 H Eos % (Auto) 0.5 Baso % (Auto) 0.8 Neut # (Auto) 5.3 Lymph # (Auto) 1.0 [place] # (Auto) 0.7 Eos # (Auto) 0.0 Baso # (Auto) 0.1 WBC Differential . Differential Comment Auto diff final PT 28.3 H INR 2.8 APTT 37.3 H Sodium 139 Potassium 4.6 Chloride 109 H Carbon Dioxide 23.8 Anion Gap 6 BUN 21 H Creatinine 1.74 H Estimated GFR 38 L Random Glucose 138 H Calcium 8.2 L Magnesium 1.9 Total Bilirubin 0.3 AST 36 ALT 20 Alkaline Phosphatase 150 H Total Protein 6.4 Albumin 2.6 L Urine Color Urine Clarity Urine pH Ur Specific [place] Urine Protein Urine Glucose (UA) Urine Ketones Urine Occult Blood Urine Nitrate Urine Bilirubin Urine Urobilinogen Ur Leukocyte Esterase Urine RBC Urine WBC Ur Squamous Epith Cells Ur Renal Epithelial Cell Urine Bacteria Hyaline Casts Urine Mucus Micro UA Comment Ur Microscopic Review Urine Culture Comments Digoxin 1.3 06/27/18 06/27/18 06/27/18 05:30 05:45 05:45 WBC 4.9 RBC 3.22 L Hgb 10.2 L Hct 30.7 L MCV 95.2 MCH 31.6 MCHC 33.2 RDW 15.8 Plt Count 201 MPV 8.0 Neut % (Auto) 62.0 Lymph % (Auto) 25.4 [place] % (Auto) 10.3 H Eos % (Auto) 1.4 Baso % (Auto) 0.9 Neut # (Auto) 3.0 Lymph # (Auto) 1.3 [place] # (Auto) 0.5 Eos # (Auto) 0.1 Baso # (Auto) 0.0 WBC Differential . Differential Comment Auto diff final PT INR APTT Sodium 142 Potassium 3.9 Chloride 110 H Carbon Dioxide 24.4 Anion Gap 8 BUN 16 Creatinine 1.22 Estimated GFR 57 L Random Glucose 101 Calcium 8.1 L Magnesium Total Bilirubin AST ALT Alkaline Phosphatase Total Protein Albumin Urine Color Yellow Urine Clarity Hazy H Urine pH 5.0 Ur Specific [place] 1.019 Urine Protein Negative Urine Glucose (UA) Negative Urine Ketones Negative Urine Occult Blood Small H Urine Nitrate Negative Urine Bilirubin Negative Urine Urobilinogen Less than 2 Ur Leukocyte Esterase Large H Urine RBC 6 H Urine WBC 68 H Ur Squamous Epith Cells 1 Ur Renal Epithelial Cell <1 Urine Bacteria Few H Hyaline Casts 3 Urine Mucus Few H Micro UA Comment Culture indicated Ur Microscopic Review Not Reportable Urine Culture Comments Culture indicated Digoxin 06/27/18 05:45 WBC RBC Hgb Hct MCV MCH MCHC RDW Plt Count MPV Neut % (Auto) Lymph % (Auto) [place] % (Auto) Eos % (Auto) Baso % (Auto) Neut # (Auto) Lymph # (Auto) [place] # (Auto) Eos # (Auto) Baso # (Auto) WBC Differential Differential Comment PT 29.4 H INR 2.9 APTT Sodium Potassium Chloride Carbon Dioxide Anion Gap BUN Creatinine Estimated GFR Random Glucose Calcium Magnesium Total Bilirubin AST ALT Alkaline Phosphatase Total Protein Albumin Urine Color Urine Clarity Urine pH Ur Specific [place] Urine Protein Urine Glucose (UA) Urine Ketones Urine Occult Blood Urine Nitrate Urine Bilirubin Urine Urobilinogen Ur Leukocyte Esterase Urine RBC Urine WBC Ur Squamous Epith Cells Ur Renal Epithelial Cell Urine Bacteria Hyaline Casts Urine Mucus Micro UA Comment Ur Microscopic Review Urine Culture Comments Digoxin Impressions Ribs X-Ray 06/26/18 00:00 CONCLUSION: There are subtle nondisplaced fractures involving the posterior lateral eighth and ninth ribs with subtle cortical breaks. Abdomen/Pelvis CT 06/26/18 12:51 CONCLUSION: 1. Lower lobe airspace disease with loculated parapneumonic effusion 2. Postsurgical seroma in the left retroperitoneum extending from the pelvic sidewall to the aorta following explantation of an aortic stent graft. 3. Intact abdominal aorta status post repair. 4. Status post cholecystectomy and prostatectomy. 5. 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 Uncomplicated colonic diverticulosis. 7. Stable left renal cyst. Chest X-Ray 06/26/18 12:51 CONCLUSION: Persistent or recurrent left base infiltrate and effusion Assessment and Plan - Plan Pararenal abdominal aortic aneurysm status post open repair Left retroperitoneum fluid collection I reviewed the CT abdomen pelvis: the open repair is intact with no evidence of extravasation. The left renal bypass, right iliac stents, femorofemoral bypass are intact. The fluid collection is most likely hematoma versus seroma without any signs of infection. Continue with medical management per the family medicine team Follow-up as scheduled with Dr. Mau Restrpeo at [facility] in [place] Thank you for allowing us to participate in this patient care, if you have any questions please do not hesitate to call my cell phone Zia Wolf MD [facility] [phone]
--- NOTE | 2018-06-27 11:32 | P.PNFP ---
Subjective Interval history: Mr. Moe had no acute events overnight. This morning he is alert and oriented x3; however, he is confused and wants to make sure he does not sign anything without his being in the room. He relates to us that he has long- term care insurance and is hoping to discharge from the hospital soon to some place where he can be safe. We will get Case Management involved to help him sort out options for assisted living. He has left lower chest pain from a broken rib, but no shortness of breath, nausea, vomiting, diarrhea, fevers, chills, abdominal or leg pain. <Eduardo Navarro III H - 06/27/18 11:32> Results - Labs Result diagrams: 06/27/18 05:45 06/27/18 05:45 <Zia Chaudhari K - 06/27/18 12:14> Abnormal lab results 06/26/18 06/26/18 06/26/18 Range/Units 12:58 12:58 12:58 RBC 3.51 L (4.50-5.90) mil/mm3 Hgb 11.3 L (13.0-17.0) gm/dL Hct 33.7 L (39.0-51.0) % Neut % (Auto) 74.4 H (16.0-70.0) % [place] % (Auto) 9.7 H (0.0-8.0) % PT 28.3 H (9.8-11.6) sec APTT 37.3 H (23.4-31.7) sec Chloride 109 H (98-107) meq/L BUN 21 H (7-18) mg/dL Creatinine 1.74 H (0.60-1.30) mg/dL Estimated GFR 38 L (>89) mL/min Random Glucose 138 H (74-106) mg/dL Calcium 8.2 L (8.5-10.1) mg/dL Alkaline Phosphatase 150 H (45-117) U/L Albumin 2.6 L (3.4-5.0) g/dL Urine Clarity (Clear) Urine Occult Blood (Negative) Ur Leukocyte Esterase (Negative) Urine RBC (0-3) /hpf Urine WBC (0-5) /hpf Urine Bacteria (None) /hpf Urine Mucus (Occasional) /lpf 06/27/18 06/27/1806/27/18 Range/Units 05:30 05:45 05:45 RBC 3.22 L (4.50-5.90) mil/mm3 Hgb 10.2 L (13.0-17.0) gm/dL Hct 30.7 L (39.0-51.0) % Neut % (Auto) (16.0-70.0) % [place] % (Auto) 10.3 H (0.0-8.0) % PT (9.8-11.6) sec APTT (23.4-31.7) sec Chloride 110 H (98-107) meq/L BUN (7-18) mg/dL Creatinine (0.60-1.30) mg/dL Estimated GFR 57 L (>89) mL/min Random Glucose (74-106) mg/dL Calcium 8.1 L (8.5-10.1) mg/dL Alkaline Phosphatase (45-117) U/L Albumin (3.4-5.0) g/dL Urine Clarity Hazy H (Clear) Urine Occult Blood Small H (Negative) Ur Leukocyte Esterase Large H (Negative) Urine RBC 6 H (0-3) /hpf Urine WBC 68 H (0-5) /hpf Urine Bacteria Few H (None) /hpf Urine Mucus Few H (Occasional) /lpf 06/27/18 Range/Units 05:45 RBC (4.50-5.90) mil/mm3 Hgb (13.0-17.0) gm/dL Hct (39.0-51.0) % Neut % (Auto) (16.0-70.0) % [place] % (Auto) (0.0-8.0) % PT 29.4 H (9.8-11.6) sec APTT (23.4-31.7) sec Chloride (98-107) meq/L BUN (7-18) mg/dL Creatinine (0.60-1.30) mg/dL Estimated GFR (>89) mL/min Random Glucose (74-106) mg/dL Calcium (8.5-10.1) mg/dL Alkaline Phosphatase (45-117) U/L Albumin (3.4-5.0) g/dL Urine Clarity (Clear) Urine Occult Blood (Negative) Ur Leukocyte Esterase (Negative) Urine RBC (0-3) /hpf Urine WBC (0-5) /hpf Urine Bacteria (None) /hpf Urine Mucus (Occasional) /lpf Short CBC 06/26/18 06/27/18 Range/Units 12:58 05:45 WBC 7.2 4.9 (4.0-11.0) th/mm3 Hgb 11.3 L 10.2 L (13.0-17.0) gm/dL Hct 33.7 L 30.7 L (39.0-51.0) % Plt Count 214 201 (150-450) th/mm3 BMP 06/26/18 06/27/18 12:58 05:45 Sodium 139 142 Potassium 4.6 3.9 Chloride 109 H 110 H Carbon Dioxide 23.8 24.4 BUN 21 H 16 Creatinine 1.74 H 1.22 Calcium 8.2 L 8.1 L Liver Function 06/26/18 Range/Units 12:58 Total Bilirubin 0.3 (0.2-1.0) mg/dL AST 36 (15-37) U/L ALT 20 (12-78) U/L Alkaline Phosphatase 150 H (45-117) U/L Albumin 2.6 L (3.4-5.0) g/dL Urine 06/27/18 Range/Units 05:30 Urine Color Yellow (Yellw/Straw) Urine Clarity Hazy H (Clear) Urine pH 5.0 (5.0-8.5) Ur Specific Roy 1.019 (1.002-1.035) Urine Protein Negative (Neg-Trace) mg/dL Urine Glucose (UA) Negative (Negative) mg/dL <Zia Chaudhari - 06/27/18 12:14> Abnormal lab results 06/26/18 06/26/18 06/26/18 Range/Units 12:58 12:58 12:58 RBC 3.51 L (4.50-5.90) mil/mm3 Hgb 11.3 L (13.0-17.0) gm/dL Hct 33.7 L (39.0-51.0) % Neut % (Auto) 74.4 H (16.0-70.0) % [place] % (Auto) 9.7 H (0.0-8.0) % PT 28.3 H (9.8-11.6) sec APTT 37.3 H (23.4-31.7) sec Chloride 109 H (98-107) meq/L BUN 21 H (7-18) mg/dL Creatinine 1.74 H (0.60-1.30) mg/dL Estimated GFR 38 L (>89) mL/min Random Glucose 138 H (74-106) mg/dL Calcium 8.2 L (8.5-10.1) mg/dL Alkaline Phosphatase 150 H (45-117) U/L Albumin 2.6 L (3.4-5.0) g/dL Urine Clarity (Clear) Urine Occult Blood (Negative) Ur Leukocyte Esterase (Negative) Urine RBC (0-3) /hpf Urine WBC (0-5) /hpf Urine Bacteria (None) /hpf Urine Mucus (Occasional) /lpf 06/27/18 06/27/18 06/27/18 Range/Units 05:30 05:45 05:45 RBC 3.22 L (4.50-5.90) mil/mm3 Hgb 10.2 L (13.0-17.0) gm/dL Hct 30.7 L (39.0-51.0) % Neut % (Auto) (16.0-70.0) % [place] % (Auto) 10.3 H (0.0-8.0) % PT (9.8-11.6) sec APTT (23.4-31.7) sec Chloride 110 H (98-107) meq/L BUN (7-18) mg/dL Creatinine (0.60-1.30) mg/dL Estimated GFR 57 L (>89) mL/min Random Glucose (74-106) mg/dL Calcium 8.1 L (8.5-10.1) mg/dL Alkaline Phosphatase (45-117) U/L Albumin (3.4-5.0) g/dL Urine Clarity Hazy H (Clear) Urine Occult Blood Small H (Negative) Ur Leukocyte Esterase Large H (Negative) Urine RBC 6 H (0-3) /hpf Urine WBC 68 H (0-5) /hpf Urine Bacteria Few H (None) /hpf Urine Mucus Few H (Occasional) /lpf 06/27/18 Range/Units 05:45 RBC (4.50-5.90) mil/mm3 Hgb (13.0-17.0) gm/dL Hct (39.0-51.0) % Neut % (Auto) (16.0-70.0) % [place] % (Auto) (0.0-8.0) % PT 29.4 H (9.8-11.6) sec APTT (23.4-31.7) sec Chloride (98-107) meq/L BUN (7-18) mg/dL Creatinine (0.60-1.30) mg/dL Estimated GFR (>89) mL/min Random Glucose (74-106) mg/dL Calcium (8.5-10.1) mg/dL Alkaline Phosphatase (45-117) U/L Albumin (3.4-5.0) g/dL Urine Clarity (Clear) Urine Occult Blood (Negative) Ur Leukocyte Esterase (Negative) Urine RBC (0-3) /hpf Urine WBC (0-5) /hpf Urine Bacteria (None) /hpf Urine Mucus (Occasional) /lpf Short CBC 06/26/18 06/27/18 Range/Units 12:58 05:45 WBC 7.2 4.9 (4.0-11.0) th/mm3 Hgb 11.3 L 10.2 L (13.0-17.0) gm/dL Hct 33.7 L 30.7 L (39.0-51.0) % Plt Count 214 201 (150-450) th/mm3 BMP 06/26/18 06/27/18 12:58 05:45 Sodium 139 142 Potassium 4.6 3.9 Chloride 109 H 110 H Carbon Dioxide 23.8 24.4 BUN 21 H 16 Creatinine 1.74 H 1.22 Calcium 8.2 L 8.1 L Liver Function 06/26/18 Range/Units 12:58 Total Bilirubin 0.3 (0.2-1.0) mg/dL AST 36 (15-37) U/L ALT 20 (12-78) U/L Alkaline Phosphatase 150 H (45-117) U/L Albumin 2.6 L (3.4-5.0) g/dL Urine 06/27/18 Range/Units 05:30 Urine Color Yellow (Yellw/Straw) Urine Clarity Hazy H (Clear) Urine pH 5.0 (5.0-8.5) Ur Specific Roy 1.019 (1.002-1.035) Urine Protein Negative (Neg-Trace) mg/dL Urine Glucose (UA) Negative (Negative) mg/dL <Eduardo Navarro III H - 06/27/18 11:32> - Imaging Impressions Ribs X-Ray 06/26/18 00:00 CONCLUSION: There are subtle nondisplaced fractures involving the posterior lateral eighth and ninth ribs with subtle cortical breaks. Abdomen/Pelvis CT 06/26/18 12:51 CONCLUSION: 1. Lower lobe airspace disease with loculated parapneumonic effusion 2. Postsurgical seroma in the left retroperitoneum extending from the pelvic sidewall to the aorta following explantation of an aortic stent graft. 3. Intact abdominal aorta status post repair. 4. Status post cholecystectomy and prostatectomy. 5. 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 Uncomplicated colonic diverticulosis. 7. Stable left renal cyst. Chest X-Ray 06/26/18 12:51 CONCLUSION: Persistent or recurrent left base infiltrate and effusion <Zia Chaudhari - 06/27/18 12:14> Impressions Ribs X-Ray 06/26/18 00:00 CONCLUSION: There are subtle nondisplaced fractures involving the posterior lateral eighth and ninth ribs with subtle cortical breaks. Abdomen/Pelvis CT 06/26/18 12:51 CONCLUSION: 1. Lower lobe airspace disease with loculated parapneumonic effusion 2. Postsurgical seroma in the left retroperitoneum extending from the pelvic sidewall to the aorta following explantation of an aortic stent graft. 3. Intact abdominal aorta status post repair. 4. Status post cholecystectomy and prostatectomy. 5. 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 Uncomplicated colonic diverticulosis. 7. Stable left renal cyst. Chest X-Ray 06/26/18 12:51 CONCLUSION: Persistent or recurrent left base infiltrate and effusion <Melanie MOHANEduardo H - 06/27/18 11:32> Physical Exam Vital signs: Vital Signs 06/26/18 12:51 06/26/18 14:00 06/26/18 18:00 Temperature 97.9 F Pulse Rate 75 93 H 96 H Respiratory Rate 17 20 24 Blood Pressure 127/62 156/67 H Pulse Oximetry 99 97 99 06/26/18 18:47 06/26/18 20:00 06/26/18 20:40 Temperature 97.8 F Pulse Rate 98 H 95 H 103 H Respiratory Rate 18 18 Blood Pressure 162/74 H 167/72 H Pulse Oximetry 98 97 06/27/18 00:00 06/27/18 04:00 06/27/18 08:00 Temperature 97.3 F L 97.3 F L 97.7 F Pulse Rate 95 H 93 H 61 Respiratory Rate 18 18 16 Blood Pressure 133/60 160/71 H 164/72 H Pulse Oximetry 94 L 94 L 96 Intake & Output 06/26/18 06/27/18 06/27/18 18:59 06:59 18:59 Intake Total 500 / 500 2170 / 2170 Output Total 400 / 400 Balance 500 / 500 1770 / 1770 Weight 82.554 kg 78.2 kg Intake: IV 500 / 500 1750 / 1750 NS Inj 1,000 ML @ 100 mls/hr IV 1750 / 1750 .CONT .Q10H BONIFACIO Rx#:[id number] NS Inj 500 ML @ 1000 mls/hr IV. 500 / 500 SIG BOLUS BONIFACIO Rx#:[id number] Oral 420 / 420 Output: Urine 400 / 400 Other: Date of Last Bowel Movement 06/23/18 Weight On Admission 78.2 kg <Zia Chaudhari K - 06/27/18 12:14> Vital Signs 06/26/18 12:51 06/26/18 14:00 06/26/18 18:00 Temperature 97.9 F Pulse Rate 75 93 H 96 H Respiratory Rate 17 20 24 Blood Pressure 127/62 156/67 H Pulse Oximetry 99 97 99 06/26/18 18:47 06/26/18 20:00 06/26/18 20:40 Temperature 97.8 F Pulse Rate 98 H 95 H 103 H Respiratory Rate 18 18 Blood Pressure 162/74 H 167/72 H Pulse Oximetry 98 97 06/27/18 00:00 06/27/18 04:00 06/27/18 08:00 Temperature 97.3 F L 97.3 F L 97.7 F Pulse Rate 95 H 93 H 70 Respiratory Rate 18 18 16 Blood Pressure 133/60 160/71 H 164/72 H Pulse Oximetry 94 L 94 L 96 Intake & Output 06/26/18 06/27/18 06/27/18 18:59 06:59 18:59 Intake Total 500 / 500 2170 / 2170 Output Total 400 / 400 Balance 500 / 500 1770 / 1770 Weight 82.554 kg 78.2 kg Intake: IV 500 / 500 1750 / 1750 NS Inj 1,000 ML @ 100 mls/hr IV 1750 / 1750 .CONT .Q10H BONIFACIO Rx#:[id number] NS Inj 500 ML @ 1000 mls/hr IV. 500 / 500 SIG BOLUS BONIFACIO Rx#:[id number] Oral 420 / 420 Output: Urine 400 / 400 Other: Date of Last Bowel Movement 06/23/18 Weight On Admission 78.2 kg <Eduardo Navarro III - 06/27/18 11:32> Narrative: GENERAL: Pleasant elderly man resting comfortably in hospital bed in no acute distress. Pleasantly confused, but oriented x3. SKIN: No rashes. Cool and dry. HEAD: Atraumatic. Normocephalic. EYES: Pupils equal round and right pupil less reactive than left. Pt reports surgery x2 for retinal detachment. Extraocular motions intact. No scleral icterus. No injection or drainage. ENT: Nose without bleeding, purulent drainage or septal hematoma. Airway patent. NECK: Trachea midline. No lymphadenopathy. Supple, nontender. CARDIOVASCULAR: Regular rate and rhythm. Systolic mechanical click. CHEST: Left lower thoracic pain w/palpation. RESPIRATORY: Clear to auscultation. Breath sounds equal bilaterally. No wheezes , rales, or rhonchi. GASTROINTESTINAL: Abdomen soft, diffusely tender to palpation on left side over his ribs. healing transverse scar over left side of abdomen, with trace dried blood, no evidence of seroma. well healed scar in the midline of abdomen. Positive bowel sounds, nondistended. MUSCULOSKELETAL: Extremities without edema. No calf tenderness. NEUROLOGICAL: Awake and alert. Motor and sensory grossly within normal limits. Normal speech. Mild LUE/LLE weakness compared to right; otherwise normal neuro exam. <Eduardo Navarro III - 06/27/18 11:32> Assessment and Plan - Assessment (1) Fall Code(s): W19.XXXA - Unspecified fall, initial encounter Status: Acute (2) CKD (chronic kidney disease) Code(s): N18.9 - Chronic kidney disease, unspecified Status: Acute (3) Hypertension, essential Code(s): I10 - Essential (primary) hypertension Status: Chronic (4) Anemia Code(s): D64.9 - Anemia, unspecified Status: Acute (5) Hypotension Code(s): I95.9 - Hypotension, unspecified Status: Acute (6) History of abdominal aortic aneurysm (AAA) repair Code(s): Z98.890 - Other specified postprocedural states Status: Acute (7) Urinary catheter complication Code(s): T83.9XXA - Unspecified complication of genitourinary prosthetic device , implant and graft, initial encounter Status: Acute Onset Date: ~05/23/18 (8) H/O mechanical aortic valve replacement Code(s): Z95.2 - Presence of prosthetic heart valve Status: Chronic <Zia Chaudhari - 06/27/18 12:14> (1) Fall Code(s): W19.XXXA - Unspecified fall, initial encounter Status: Acute Plan: Patient who fell at home after an episode of dizziness. He landed on his left side hitting a table on his way to the floor. These episodes of dizziness have been occurring for about 2 years. This could be a side effect of medication versus deconditioning after procedure versus cardiac etiology versus hypovolemia versus BPPV. - EKG- normal sinus rhythm - Echocardiogram to r/o cardiac etiology of dizziness - Rib XR due to point tenderness on exam :There are subtle nondisplaced fractures involving the posterior lateral eighth and ninth ribs with subtle cortical breaks. - Hold tamsulosin, oxybutinin, and midodrine -Incentive spirometry - PT eval (2) CKD (chronic kidney disease) Code(s): N18.9 - Chronic kidney disease, unspecified Status: Acute Plan: Patient has a history of CKD. Creatinine is 1.74 on admission; 1.22 this morning. -DC IVF as pt is taking PO and Cr stable -Continue to monitor -Avoid nephrotoxic medications (3) Hypertension, essential Code(s): I10 - Essential (primary) hypertension Status: Chronic Plan: -Hold midodrine -Labetalol 100 mg PO as needed for blood pressures greater than 150/90 -Control pain with morphine 2 mg IV Q4H (4) Anemia Code(s): D64.9 - Anemia, unspecified Status: Acute Plan: - Hemoglobin stable at 11.3->10.2; likely dilutional due to IVF -Monitor (5) Hypotension Code(s): I95.9 - Hypotension, unspecified Status: Acute Plan: Resolved--BP 160s/70s today - Hold tamsulosin - Monitor - Stop IVF (6) History of abdominal aortic aneurysm (AAA) repair Code(s): Z98.890 - Other specified postprocedural states Status: Acute Plan: -Consult vascular surgery (7) Urinary catheter complication Code(s): T83.9XXA - Unspecified complication of genitourinary prosthetic device , implant and graft, initial encounter Status: Acute Onset Date: ~05/23/18 Plan: - UA and reflex culture - Hold tamsulosin - Monitor I and O (8) H/O mechanical aortic valve replacement Code(s): Z95.2 - Presence of prosthetic heart valve Status: Chronic Plan: - Continue warfarin 5 mg daily - INR 2.8->2.9 -Monitor daily INR in hospital; hold dose if >3.0 <Eduardo Navarro III - 06/27/18 11:13> - Assessment and Plan Fluids: PO fluids Electrolyte: monitor Nutrition: cardiac diet DVT PPx: continue home warfarin GI PPx: Continue home pantoprazole Pt SDW Dr Chaudhari <Eduardo Navarro III - 06/27/18 11:32> - Attending Attestation The exam, history, and the medical decision-making described in the above note were completed with the assistance of the resident physician. I reviewed and agree with the findings presented. I attest that I had a [id number] encounter with the patient on the same day, and personally performed and documented my assessment and findings in the medical record. He is doing well today, pain controlled when he is not moving too much. BPs are in the 160s mostly today, will permit some hypertension into 160s this until we have orthostatic vitals taken as this has been his issue. after OS will try to add po labetalol for BPs>160 and see what his requirements are. If he is truly orthostatic he may be someone that we have to treat standing BPs only. Will continue to control pain and give IS today to prevent pneumonia. Will monitor other problems, wait for urine culture, may add back flomax if needed. continue to hold oxybutynin. may need to try myrbetriq if he needs more bladder control instead. He says he has been paying into custodial care insurance. Appreciate PT evaluation and CM discussing options for placement after this based on recommendations. <Zia Chaudhari - 06/27/18 12:14>
[2018-06-27] MEDS ORDERED: Labetalol 100 MG Tablet PO PRN (11:33)
--- NOTE | 2018-06-27 15:22 | ECHRPT ---
Indication: CARDIOMYOPATHY CONCLUSIONS Normal left ventricular size. Mild concentric left ventricular hypertrophy. The left ventricular systolic function is low normal with an estimated ejection fraction in the rang e of 50- 55%. The aortic valve prosthesis is normal to two-dimensional, color flow and Doppler interrogation. There is trace tricuspid valve regurgitation. The estimated pulmonary arterial pressure is 15mmHg. A left sided pleural effusion is present. BP: / HR: Rhythm: MEASUREMENTS (Male / Female) Normal Values Technical Quality: 2D ECHO LV Diastolic Diameter PLAX 3.4 cm 4.2 - 5.9 / 3.9 - 5.3 cm LV Systolic Diameter PLAX 2.7 cm IVS Diastolic Thickness 1.7 cm 0.6 - 1.0 / 0.6 - 0.9 cm LVPW Diastolic Thickness 1.6 cm 0.6 - 1.0 / 0.6 - 0.9 cm LV Relative Wall Thickness 1.0 RV Internal Dim ED PLAX 3.3 cm DOPPLER AV Peak Velocity 179.7 cm/s AV Peak Gradient 12.9 mmHg AV Mean Gradient 5.3 mmHg AV Velocity Time Integral 28.0 cm LVOT Peak Velocity 84.6 cm/s LVOT Peak Gradient 2.9 mmHg LVOT Velocity Time Integral 18.9 cm Mitral E Point Velocity 97.7 cm/s Mitral A Point Velocity 88.4 cm/s Mitral E to A Ratio 1.1 TR Peak Velocity 113.0 cm/s TR Peak Gradient 5.1 mmHg Right Atrial Pressure 10.0 mmHg Pulmonary Artery Systolic Pressu 15.1 mmHg Right Ventricular Systolic Press 15.1 mmHg PV Peak Velocity 105.0 cm/s PV Peak Gradient 4.4 mmHg FINDINGS LEFT VENTRICLE Normal left ventricular size. Mild concentric left ventricular hypertrophy. The left ventricular systolic function is low normal with an estimated ejection fraction in the rang e of 50- 55%. RIGHT VENTRICLE The right ventricle was not well visualized. LEFT ATRIUM The left atrial size is normal. RIGHT ATRIUM The right atrium is not well visualized. ATRIAL SEPTUM The interatrial septum not well visualized. AORTA The aortic root and proximal ascending aorta are normal in size on limited imaging. MITRAL VALVE No mitral valve regurgitation. AORTIC VALVE The aortic valve prosthesis is normal to two-dimensional, color flow and Doppler interrogation. TRICUSPID VALVE There is trace tricuspid valve regurgitation. The estimated pulmonary arterial pressure is 15mmHg. PULMONARY VALVE The pulmonary valve is not well visualized. VESSELS The inferior vena cava was not well visualized. PERICARDIUM A left sided pleural effusion is present. Vaibhav Gorman MD (Electronically Signed) Final Date:27 June 2018 15:21
[2018-06-27] MEDS ORDERED: hydrALAZINE HCl Inj 20 MG/ML Vial IV.PUSH ONE (17:40)
[2018-06-27] MEDS: Acetaminophen 325 MG Tablet PO PRN (20:16)
--- NOTE | 2018-06-28 07:32 | ECG ---
Date Performed: 06/26/2018 Time Performed: 12:57:52 PTAGE: 82 years EKG: Sinus rhythm NORMAL ECG PREVIOUS TRACING : 09/26/2010 13.25 Since the previous tracing, no significant change noted DOCTOR: Syed Torres Interpretating Date/Time 06/28/2018 07:30:28
[2018-06-28 08:58] LABS: Hematocrit 32.2 % (39.0-51.0); Hemoglobin 10.9 gm/dL (13.0-17.0); Mean Corpuscular HGB Conc 33.8 % (32.0-36.0); Mean Corpuscular Hemoglobin 31.7 pg (27.0-34.0); Mean Corpuscular Volume 93.8 fL (80.0-100.0); Mean Platelet Volume 7.7 fL (7.0-11.0); Platelet Count 225 th/mm3 (150-450); Red Blood Count 3.43 mil/mm3 (4.50-5.90); Red Cell Distribution Width 15.6 % (11.6-17.2); White Blood Count 4.5 th/mm3 (4.0-11.0)
[2018-06-28 09:07] LABS: INR 2.5 Ratio; Prothrombin Time 24.8 sec (9.8-11.6)
[2018-06-28 09:26] LABS: Calcium 8.3 mg/dL (8.5-10.1); Carbon Dioxide 23.7 meq/L (21.0-32.0)
[2018-06-28] MEDS ORDERED: Sod Phosphate/Sod Biphosphate (Adult) Enema 133 ML Bottle RECTAL PRN (09:49)
--- NOTE | 2018-06-28 09:57 | P.PNFP ---
Subjective Interval history: Mr. Moe had no acute events overnight. This morning he is seated on the bedside commode and is having his first bowel movement in several days. His notes that he had a fall at home and hit his head though there was no contusion or bleeding and wonders if we can get some head imaging. His also requests that we get a as needed Fleet enema in case he is constipated again. His says he was anxious and had trouble sleeping last night and would be more comfortable at home if we can arrange for home health and all of his needs at home. We will get PT to evaluate him today. Denies chest pain, shortness of breath, nausea, vomiting, diarrhea, abdominal or leg pain. <Eduardo Navarro III H - 06/28/18 13:12> Results - Labs Result diagrams: 06/28/18 08:26 06/28/18 08:26 <Zia Chaudhari - 06/28/18 22:12> Abnormal lab results 06/27/18 06/28/18 06/28/18 Range/Units 05:30 08:26 08:26 RBC 3.43 L (4.50-5.90) mil/mm3 Hgb 10.9 L (13.0-17.0) gm/dL Hct 32.2 L (39.0-51.0) % PT 24.8 H (9.8-11.6) sec Chloride (98-107) meq/L Estimated GFR (>89) mL/min Calcium (8.5-10.1) mg/dL Urine Clarity Hazy H (Clear) Urine Occult Blood Small H (Negative) Ur Leukocyte Esterase Large H (Negative) Urine RBC 6 H (0-3) /hpf Urine WBC 68 H (0-5) /hpf Urine Bacteria Few H (None) /hpf Urine Mucus Few H (Occasional) /lpf 06/28/18 Range/Units 08:26 RBC (4.50-5.90) mil/mm3 Hgb (13.0-17.0) gm/dL Hct (39.0-51.0) % PT (9.8-11.6) sec Chloride 109 H (98-107) meq/L Estimated GFR 60 L (>89) mL/min Calcium 8.3 L (8.5-10.1) mg/dL Urine Clarity (Clear) Urine Occult Blood (Negative) Ur Leukocyte Esterase (Negative) Urine RBC (0-3) /hpf Urine WBC (0-5) /hpf Urine Bacteria (None) /hpf Urine Mucus (Occasional) /lpf Short CBC 06/28/18 Range/Units 08:26 WBC 4.5 (4.0-11.0) th/mm3 Hgb 10.9 L (13.0-17.0) gm/dL Hct 32.2 L (39.0-51.0) % Plt Count 225 (150-450) th/mm3 BMP 06/28/18 08:26 Sodium 142 Potassium 4.0 Chloride 109 H Carbon Dioxide 23.7 BUN 12 Creatinine 1.17 Calcium 8.3 L Urine 06/27/18 Range/Units 05:30 Urine Color Yellow (Yellw/Straw) Urine Clarity Hazy H (Clear) Urine pH 5.0 (5.0-8.5) Ur Specific Pauline 1.019 (1.002-1.035) Urine Protein Negative (Neg-Trace) mg/dL Urine Glucose (UA) Negative (Negative) mg/dL <Zia Chaudhari K - 06/28/18 22:12> Abnormal lab results 06/28/18 06/28/18 06/28/18 Range/Units 08:26 08:26 08:26 RBC 3.43 L (4.50-5.90) mil/mm3 Hgb 10.9 L (13.0-17.0) gm/dL Hct 32.2 L (39.0-51.0) % PT 24.8 H (9.8-11.6) sec Chloride 109 H (98-107) meq/L Estimated GFR 60 L (>89) mL/min Calcium 8.3 L (8.5-10.1) mg/dL Short CBC 06/28/18 Range/Units 08:26 WBC 4.5 (4.0-11.0) th/mm3 Hgb 10.9 L (13.0-17.0) gm/dL Hct 32.2 L (39.0-51.0) % Plt Count 225 (150-450) th/mm3 BMP 06/28/18 08:26 Sodium 142 Potassium 4.0 Chloride 109 H Carbon Dioxide 23.7 BUN 12 Creatinine 1.17 Calcium 8.3 L <Eduardo Navarro III - 06/28/18 09:57> - Imaging Impressions Head CT 06/28/18 00:00 CONCLUSION: No acute intracranial findings . <Zia Chaudhari - 06/28/18 22:12> Ribs X-Ray 06/26/18 00:00 CONCLUSION: There are subtle nondisplaced fractures involving the posterior lateral eighth and ninth ribs with subtle cortical breaks. Abdomen/Pelvis CT 06/26/18 12:51 CONCLUSION: 1. Lower lobe airspace disease with loculated parapneumonic effusion 2. Postsurgical seroma in the left retroperitoneum extending from the pelvic sidewall to the aorta following explantation of an aortic stent graft. 3. Intact abdominal aorta status post repair. 4. Status post cholecystectomy and prostatectomy. 5. 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 Uncomplicated colonic diverticulosis. 7. Stable left renal cyst. Chest X-Ray 06/26/18 12:51 CONCLUSION: Persistent or recurrent left base infiltrate and effusion Head CT 06/28/18 00:00 CONCLUSION: No acute intracranial findings . <Eduardo Navarro III - 06/28/18 13:12> Physical Exam Vital signs: Vital Signs 06/28/18 00:00 06/28/18 04:00 06/28/18 08:00 Temperature 98.1 F 97.6 F 97.2 F L Pulse Rate 55 L 74 68 Respiratory Rate 18 18 20 Blood Pressure 160/60 H 156/69 H 144/56 H Pulse Oximetry 94 L 94 L 96 06/28/18 12:00 06/28/18 16:00 Temperature 97.6 F 97.8 F Pulse Rate 58 L 76 Respiratory Rate 20 20 Blood Pressure 162/75 H Pulse Oximetry 96 94 L Intake & Output 06/28/18 06/28/18 06/29/18 06:59 18:59 06:59 Intake Total 480 / 480 500 / 500 Balance 480 / 480 500 / 500 Weight 79.1 kg Intake: Oral 480 / 480 500 / 500 Other: # Voids 2 3 Date of Last Bowel Movement 06/28/18 # Bowel Movements 2 <Zia Chaudhari - 06/28/18 22:12> Vital Signs 06/27/18 12:00 06/27/18 13:18 06/27/18 16:00 Temperature 97.2 F L Pulse Rate 61 57 L 53 L Respiratory Rate 16 Blood Pressure 180/77 H 171/75 H Pulse Oximetry 98 06/27/18 17:14 06/27/18 20:00 06/28/18 00:00 Temperature 97.5 F L 98.1 F 98.1 F Pulse Rate 58 L 66 55 L Respiratory Rate 20 22 18 Blood Pressure 170/77 H 157/70 H 160/60 H Pulse Oximetry 94 L 95 94 L 06/28/18 04:00 Temperature 97.6 F Pulse Rate 74 Respiratory Rate 18 Blood Pressure 156/69 H Pulse Oximetry 94 L Intake & Output 06/27/18 06/28/18 06/28/18 18:59 06:59 18:59 Intake Total 1080 / 1080 480 / 480 Output Total 2300 / 2300 Balance -1220 / -1220 480 / 480 Weight 79.1 kg Intake: IV 500 / 500 NS Inj 1,000 ML @ 100 mls/hr IV 500 / 500 .CONT .Q10H BON[facility] Rx#:[id number] Oral 580 / 580 480 / 480 Output: Urine 2300 / 2300 Other: # Voids 2 # Bowel Movements 1 <Eduardo Navarro III H - 06/28/18 09:57> Narrative: GENERAL: Pleasant elderly man resting comfortably in hospital bed in no acute distress, then transferred to bedside commode and is not dizzy or in pain. Less confused, oriented x3. SKIN: No rashes. Cool and dry. HEAD: Atraumatic. Normocephalic. EYES: Left pupil round and reactive; right pupil with irregular anisocoria. Pt reports surgery x2 for retinal detachment. Extraocular motions intact. No scleral icterus. No injection or drainage. ENT: Nose without drainage. Airway patent. NECK: Trachea midline. No lymphadenopathy. Supple, nontender. CARDIOVASCULAR: Regular rate and rhythm. Systolic mechanical click. CHEST: Left lower thoracic pain w/palpation, improved. RESPIRATORY: Clear to auscultation. Breath sounds equal bilaterally. No wheezes , rales, or rhonchi. GASTROINTESTINAL: Abdomen soft, diffusely tender to palpation on left side over his ribs. healing transverse scar over left side of abdomen, c/d/i, no evidence of seroma. well healed scar in the midline of abdomen. Positive bowel sounds, nondistended. MUSCULOSKELETAL: Extremities without edema. No calf tenderness. NEUROLOGICAL: Awake and alert. Motor and sensory grossly within normal limits. Normal speech. Mild LUE/LLE weakness compared to right; otherwise normal neuro exam. <Eduardo Navarro III - 06/28/18 13:12> Assessment and Plan - Assessment (1) Fall Code(s): W19.XXXA - Unspecified fall, initial encounter Status: Acute (2) CKD (chronic kidney disease) Code(s): N18.9 - Chronic kidney disease, unspecified Status: Acute (3) Hypertension, essential Code(s): I10 - Essential (primary) hypertension Status: Chronic (4) Anemia Code(s): D64.9 - Anemia, unspecified Status: Acute (5) Hypotension Code(s): I95.9 - Hypotension, unspecified Status: Acute (6) History of abdominal aortic aneurysm (AAA) repair Code(s): Z98.890 - Other specified postprocedural states Status: Acute (7) Urinary catheter complication Code(s): T83.9XXA - Unspecified complication of genitourinary prosthetic device , implant and graft, initial encounter Status: Acute Onset Date: ~05/23/18 (8) H/O mechanical aortic valve replacement Code(s): Z95.2 - Presence of prosthetic heart valve Status: Chronic <Zia Chaudhari - 06/28/18 22:12> (1) Fall Code(s): W19.XXXA - Unspecified fall, initial encounter Status: Acute Plan: Patient who fell at home after an episode of dizziness. He landed on his left side hitting a table on his way to the floor. These episodes of dizziness have been occurring for about 2 years. This could be a side effect of medication versus deconditioning after procedure versus cardiac etiology versus hypovolemia versus BPPV. Rib/chest pain improved per pt this morning and is using IS; mentioned fall and hit his head on baseboard at home, but there was no bleeding or contusion. - EKG- normal sinus rhythm - Echocardiogram to r/o cardiac etiology of dizziness - Rib XR due to point tenderness on exam :There are subtle nondisplaced fractures involving the posterior lateral eighth and ninth ribs with subtle cortical breaks. - Hold tamsulosin, oxybutinin, and midodrine -Incentive spirometry -Orthostatic vital signs -CT head w/o contrast--no acute findings - PT eval (2) CKD (chronic kidney disease) Code(s): N18.9 - Chronic kidney disease, unspecified Status: Acute Plan: Patient has a history of CKD that is improving. Creatinine is 1.74 on admission ; 1.17 this morning. -Continue to monitor -Avoid nephrotoxic medications (3) Hypertension, essential Code(s): I10 - Essential (primary) hypertension Status: Chronic Plan: -Hold midodrine -Labetalol 100 mg PO and Clonidine 0.1 patch as needed for blood pressures greater than 150/90 -Control pain with Tylenol; pt cannot take Ibuprofen and prefers no opioids if possible -Orthostatic VS (4) Anemia Code(s): D64.9 - Anemia, unspecified Status: Acute Plan: - Hemoglobin stable at 11.3->10.9 -Monitor (5) Hypotension Code(s): I95.9 - Hypotension, unspecified Status: Acute Plan: Resolved--BP 156/69 this morning - Hold tamsulosin - Monitor (6) History of abdominal aortic aneurysm (AAA) repair Code(s): Z98.890 - Other specified postprocedural states Status: Acute Plan: -Consult vascular surgery--Dr Wolf (7) Urinary catheter complication Code(s): T83.9XXA - Unspecified complication of genitourinary prosthetic device , implant and graft, initial encounter Status: Acute Onset Date: ~05/23/18 Plan: - UA and reflex culture-- today prelim findings of >25K CFU of MRSA -Start Bactrim DS BID PO - Hold tamsulosin - Monitor I and O (8) H/O mechanical aortic valve replacement Code(s): Z95.2 - Presence of prosthetic heart valve Status: Chronic Plan: - Continue warfarin 5 mg daily - INR 2.8->2.5 -Monitor daily INR in hospital; hold dose if >3.0 <Eduardo Navarro III - 06/28/18 13:04> - Assessment and Plan Fluids: PO fluids Electrolyte: monitor Nutrition: cardiac diet DVT PPx: continue home warfarin GI PPx: Continue home pantoprazole [place]-colace 1 tab BID Fleets enema PRN if constipation Pt SDW Dr Chaudhari <Eduardo Navarro III - 06/28/18 13:12> - Attending Attestation The exam, history, and the medical decision-making described in the above note were completed with the assistance of the resident physician. I reviewed and agree with the findings presented. I attest that I had a [id number] encounter with the patient on the same day, and personally performed and documented my assessment and findings in the medical record. concerned that patient has been more confused recently. also learned today that he did in fact hit his head on admission. CT head obtained and negative. MRSA in urine culture: given more confusion per will treat. will monitor INR and digoxin level while on abx. hopeful susceptibilities tomorrow. spent >30 minutes speaking with him and today about our plan here and need for evaluation as he may need to go back to rehab v snf. will monitor BPs here and ask again for orthostatic vitals today to see what we need. need good constant BP control. if he is going to remain inpatient we can be a little mroe agressive. continue to hold oxybutynin and BP meds until we have orthostatics. <Zia Chaudhari - 06/28/18 22:12>
[2018-06-28] MEDS: Digoxin 125 MCG Tablet PO SCH (10:00)
[2018-06-28] MEDS: Senna/Docusate Sodium 8.6/50 MG Tablet PO SCH ×2 (10:01→20:13)
[2018-06-28] MEDS: Sodium Chloride 0.9% 2 ML Flush BID IV.FLUSH SCH ×2 (10:01→20:14)
--- NOTE | 2018-06-28 10:03 | P.PNVS ---
Subjective Subjective/Hospital Course: Doing well, dizziness improved Objective Vital Signs / I&O: Vital Signs 06/27/18 12:00 06/27/18 13:18 06/27/18 16:00 Temperature 97.2 F L Pulse Rate 61 57 L 53 L Respiratory Rate 16 Blood Pressure 180/77 H 171/75 H Pulse Oximetry 98 06/27/18 17:14 06/27/18 20:00 06/28/18 00:00 Temperature 97.5 F L 98.1 F 98.1 F Pulse Rate 58 L 66 55 L Respiratory Rate 18 Blood Pressure 170/77 H 157/70 H 160/60 H Pulse Oximetry 94 L 95 94 L 06/28/18 04:00 Temperature 97.6 F Pulse Rate 74 Respiratory Rate 18 Blood Pressure 156/69 H Pulse Oximetry 94 L Intake & Output 06/27/18 06/28/18 06/28/18 18:59 06:59 18:59 Intake Total 1080 / 1080 480 / 480 Output Total 2300 / 2300 Balance -1220 / -1220 480 / 480 Weight 79.1 kg Intake: IV 500 / 500 NS Inj 1,000 ML @ 100 mls/hr IV 500 / 500 .CONT .Q10H [facility] Rx#:[id number] Oral 580 / 580 480 / 480 Output: Urine 2300 / 2300 Other: # Voids 2 # Bowel Movements 1 Physical Exam: Abdomen soft nontender nondistended Thoracoabdominal incision healing appropriate Laboratory Results - last 24 hr 06/28/18 06/28/18 06/28/18 08:26 08:26 08:26 WBC 4.5 RBC 3.43 L Hgb 10.9 L Hct 32.2 L MCV 93.8 MCH 31.7 MCHC 33.8 RDW 15.6 Plt Count 225 MPV 7.7 PT 24.8 H INR 2.5 Sodium 142 Potassium 4.0 Chloride 109 H Carbon Dioxide 23.7 Anion Gap 9 BUN 12 Creatinine 1.17 Estimated GFR 60 L Random Glucose 104 Calcium 8.3 L Impressions Ribs X-Ray 06/26/18 00:00 CONCLUSION: There are subtle nondisplaced fractures involving the posterior lateral eighth and ninth ribs with subtle cortical breaks. Abdomen/Pelvis CT 06/26/18 12:51 CONCLUSION: 1. Lower lobe airspace disease with loculated parapneumonic effusion 2. Postsurgical seroma in the left retroperitoneum extending from the pelvic sidewall to the aorta following explantation of an aortic stent graft. 3. Intact abdominal aorta status post repair. 4. Status post cholecystectomy and prostatectomy. 5. 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 Uncomplicated colonic diverticulosis. 7. Stable left renal cyst. Chest X-Ray 06/26/18 12:51 CONCLUSION: Persistent or recurrent left base infiltrate and effusion Assessment and Plan - Plan Pararenal abdominal aortic aneurysm status post open repair Left retroperitoneum fluid collection Patient is doing well, stable for discharge from vascular standpoint to follow- up with Dr. Restrepo with scheduled appointment. Zia Wolf MD [facility] [phone]
--- NOTE | 2018-06-28 11:33 | CT ---
EXAM DATE: 06/28/2018 11:30 AM EST AGE/SEX: 82 years / Male INDICATIONS: Contusion CLINICAL DATA: This is the patient's initial encounter. Patient reports that signs and symptoms have been present for 1 day and indicates a pain score of 3/10. MEDICAL/SURGICAL HISTORY: Renal disease. Bilateral retinal detachment Abdominal aortic aneurysm re pair. Appendectomy. CABG. Aortic valve replacement, hernia repair, iliac artery stent RADIATION DOSE: 45.37 CTDI (mGy) ; Patient motion COMPARISON: No prior exams available for comparison. TECHNIQUE: CT of the head without contrast. Using automated exposure control and adjustment of the mA and/or kV according to patient size, radiation dose was kept as low as reasonably achievable to ob tain optimal diagnostic quality images. DICOM format image data is available electronically for revi ew and comparison. FINDINGS: Cerebrum: The ventricles are normal for age. No evidence of midline shift, mass lesion, hemorrhage or acute infarction. No extraaxial fluid collections are seen. Posterior Fossa: The cerebellum and brainstem are intact. The 4th ventricle is midline. The cerebe llopontine angle is unremarkable. Extracranial: Visualized sinuses and mastoids are clear. Right globe is hyperdense Skull: The calvaria is intact. No evidence of skull fracture. CONCLUSION: No acute intracranial findings . Electronically signed by: Leonardo Carlson MD 06/28/2018 11:32 AM EST
[2018-06-28] MEDS: Melatonin 5 MG Tablet PO PRN (20:23)
[2018-06-29] MEDS: Acetaminophen 325 MG Tablet PO PRN ×2 (01:19→05:13)
[2018-06-29 06:21] LABS: Hemoglobin 11.3 gm/dL (13.0-17.0); Mean Corpuscular HGB Conc 33.3 % (32.0-36.0); Mean Corpuscular Hemoglobin 31.2 pg (27.0-34.0); Mean Corpuscular Volume 93.6 fL (80.0-100.0); Mean Platelet Volume 7.8 fL (7.0-11.0); Platelet Count 254 th/mm3 (150-450); Red Blood Count 3.64 mil/mm3 (4.50-5.90); Red Cell Distribution Width 15.7 % (11.6-17.2); White Blood Count 5.9 th/mm3 (4.0-11.0)
[2018-06-29 06:26] LABS: INR 2.6 Ratio; Prothrombin Time 26.6 sec (9.8-11.6)
[2018-06-29 06:40] LABS: Calcium 8.6 mg/dL (8.5-10.1); Carbon Dioxide 22.2 meq/L (21.0-32.0); Potassium 3.9 meq/L (3.5-5.1)
[2018-06-29 06:56] LABS: Digoxin 0.8 ng/mL (0.8-2.0)
--- NOTE | 2018-06-29 08:56 | P.PNFP ---
Subjective Interval history: Patient seen and examined at bedside this morning. His was present during the entire examination. He was a bit confused this morning, but he had just woken up from sleep. He denied any chest pain, shortness of breath, diarrhea, leg swelling. He does report some dysuria. He had positive orthostatic blood pressures yesterday. We explained in detail to him and his the need for holding his blood pressure medications at this time. We also explained that the physical therapist recommends that he go back to rehab. We explained to him that will work on finding a rehab placement for him. We also explained that we are waiting for sensitivities to switch his antibiotic as Bactrim is not our first choice due to the interaction with warfarin and digoxin. The patient and his voiced understanding. All questions were answered to the best of my ability. <Rhoda Tang - 06/29/18 09:41> Results - Labs Result diagrams: 06/29/18 05:14 06/29/18 05:14 <Zia Chaudhari - 06/29/18 20:00> Abnormal lab results 06/29/18 06/29/18 06/29/18 Range/Units 05:14 05:14 05:14 RBC 3.64 L (4.50-5.90) mil/mm3 Hgb 11.3 L (13.0-17.0) gm/dL Hct 34.0 L (39.0-51.0) % PT 26.6 H (9.8-11.6) sec Chloride 108 H (98-107) meq/L Creatinine 1.39 H (0.60-1.30) mg/dL Estimated GFR 49 L (>89) mL/min Short CBC 06/29/18 Range/Units 05:14 WBC 5.9 (4.0-11.0) th/mm3 Hgb 11.3 L (13.0-17.0) gm/dL Hct 34.0 L (39.0-51.0) % Plt Count 254 (150-450) th/mm3 BMP 06/29/18 05:14 Sodium 141 Potassium 3.9 Chloride 108 H Carbon Dioxide 22.2 BUN 12 Creatinine 1.39 H Calcium 8.6 <Zia Chaudhari - 06/29/18 20:00> Abnormal lab results 11/06/28/18 06/28/18 Range/Units 05:30 08:26 08:26 RBC 3.43 L (4.50-5.90) mil/mm3 Hgb 10.9 L (13.0-17.0) gm/dL Hct 32.2 L (39.0-51.0) % PT 24.8 H (9.8-11.6) sec Chloride (98-107) meq/L Creatinine (0.60-1.30) mg/dL Estimated GFR (>89) mL/min Calcium (8.5-10.1) mg/dL Urine Clarity Hazy H (Clear) Urine Occult Blood Small H (Negative) Ur Leukocyte Esterase Large H (Negative) Urine RBC 6 H (0-3) /hpf Urine WBC 68 H (0-5) /hpf Urine Bacteria Few H (None) /hpf Urine Mucus Few H (Occasional) /lpf 06/28/18 06/29/18 06/29/18 Range/Units 08:26 05:14 05:14 RBC 3.64 L (4.50-5.90) mil/mm3 Hgb 11.3 L (13.0-17.0) gm/dL Hct 34.0 L (39.0-51.0) % PT 26.6 H (9.8-11.6) sec Chloride 109 H (98-107) meq/L Creatinine (0.60-1.30) mg/dL Estimated GFR 60 L (>89) mL/min Calcium 8.3 L (8.5-10.1) mg/dL Urine Clarity (Clear) Urine Occult Blood (Negative) Ur Leukocyte Esterase (Negative) Urine RBC (0-3) /hpf Urine WBC (0-5) /hpf Urine Bacteria (None) /hpf Urine Mucus (Occasional) /lpf 06/29/18 Range/Units 05:14 RBC (4.50-5.90) mil/mm3 Hgb (13.0-17.0) gm/dL Hct (39.0-51.0) % PT (9.8-11.6) sec Chloride 108 H (98-107) meq/L Creatinine 1.39 H (0.60-1.30) mg/dL Estimated GFR 49 L (>89) mL/min Calcium (8.5-10.1) mg/dL Urine Clarity (Clear) Urine Occult Blood (Negative) Ur Leukocyte Esterase (Negative) Urine RBC (0-3) /hpf Urine WBC (0-5) /hpf Urine Bacteria (None) /hpf Urine Mucus (Occasional) /lpf Short CBC 06/28/18 06/29/18 Range/Units 08:26 05:14 WBC 4.5 5.9 (4.0-11.0) th/mm3 Hgb 10.9 L 11.3 L (13.0-17.0) gm/dL Hct 32.2 L 34.0 L (39.0-51.0) % Plt Count 225 254 (150-450) th/mm3 BMP 06/28/18 06/29/18 08:26 05:14 Sodium 142 141 Potassium 4.0 3.9 Chloride 109 H 108 H Carbon Dioxide 23.7 22.2 BUN 12 12 Creatinine 1.17 1.39 H Calcium 8.3 L 8.6 Urine 06/27/18 Range/Units 05:30 Urine Color Yellow (Yellw/Straw) Urine Clarity Hazy H (Clear) Urine pH 5.0 (5.0-8.5) Ur Specific [place] 1.019 (1.002-1.035) Urine Protein Negative (Neg-Trace) mg/dL Urine Glucose (UA) Negative (Negative) mg/dL <Rhoda Tang - 06/29/18 08:56> - Imaging Impressions Head CT 06/28/18 00:00 CONCLUSION: No acute intracranial findings . <Rhoda Tang - 06/29/18 08:56> Physical Exam Vital signs: Vital Signs 06/28/18 20:00 06/29/18 00:00 06/29/18 04:00 Temperature 97.7 F 97.4 F L 97.3 F L Pulse Rate 80 103 H 73 Respiratory Rate 20 20 20 Blood Pressure 171/81 H 160/81 H 175/77 H Pulse Oximetry 92 L 93 L 93 L 06/29/18 08:00 06/29/18 12:00 06/29/18 16:00 Temperature 97.4 F L 97.6 F 97.7 F Pulse Rate 109 H 77 75 Respiratory Rate 16 15 15 Blood Pressure 151/74 H 145/60 H 152/74 H Pulse Oximetry 95 95 95 Intake & Output 06/29/18 06/29/18 06/30/18 06:59 18:59 06:59 Intake Total 240 / 240 480 / 480 Balance 240 / 240 480 / 480 Weight 79.1 kg Intake: Oral 240 / 240 480 / 480 Other: # Voids 2 3 Date of Last Bowel Movement 06/28/18 06/28/18 <Zia Chaudhari Gigi - 06/29/18 20:00> Vital Signs 06/28/18 12:00 06/28/18 16:00 06/28/18 20:00 Temperature 97.6 F 97.8 F 97.7 F Pulse Rate 58 L 76 80 Respiratory Rate 20 20 20 Blood Pressure 162/75 H 171/81 H Pulse Oximetry 96 94 L 92 L 06/29/18 00:00 06/29/18 04:00 Temperature 97.4 F L 97.3 F L Pulse Rate 103 H 73 Respiratory Rate 20 20 Blood Pressure 160/81 H 175/77 H Pulse Oximetry 93 L 93 L Intake & Output 06/28/18 06/29/18 06/29/18 18:59 06:59 18:59 Intake Total 500 / 500 240 / 240 Balance 500 / 500 240 / 240 Weight 79.1 kg Intake: Oral 500 / 500 240 / 240 Other: # Voids 3 2 Date of Last Bowel Movement 06/28/18 06/28/18 # Bowel Movements 2 <Rhoda Tang - 06/29/18 08:56> Narrative: GENERAL: Pleasant elderly man resting comfortably in hospital bed in no acute distress SKIN: No rashes. Cool and dry. HEAD: Atraumatic. Normocephalic. EYES: No scleral icterus. No injection or drainage. ENT: Nose without drainage. Airway patent. NECK: Trachea midline. No lymphadenopathy. Supple, nontender. CARDIOVASCULAR: Regular rate and rhythm. Systolic mechanical click. CHEST: Left lower thoracic pain w/palpation, improved. RESPIRATORY: Clear to auscultation. Breath sounds equal bilaterally. No wheezes , rales, or rhonchi. GASTROINTESTINAL: Abdomen soft, diffusely tender to palpation on left side over his ribs. healing transverse scar over left side of abdomen, c/d/i, no evidence of seroma. well healed scar in the midline of abdomen. Positive bowel sounds, nondistended. MUSCULOSKELETAL: Extremities without edema. No calf tenderness. NEUROLOGICAL: Awake and alert. <Rhoda Tang - 06/29/18 09:41> Assessment and Plan - Assessment (1) Fall Code(s): W19.XXXA - Unspecified fall, initial encounter Status: Acute (2) CKD (chronic kidney disease) Code(s): N18.9 - Chronic kidney disease, unspecified Status: Acute (3) Hypertension, essential Code(s): I10 - Essential (primary) hypertension Status: Chronic (4) Anemia Code(s): D64.9 - Anemia, unspecified Status: Acute (5) Hypotension Code(s): I95.9 - Hypotension, unspecified Status: Acute (6) History of abdominal aortic aneurysm (AAA) repair Code(s): Z98.890 - Other specified postprocedural states Status: Acute (7) Urinary catheter complication Code(s): T83.9XXA - Unspecified complication of genitourinary prosthetic device , implant and graft, initial encounter Status: Acute Onset Date: ~05/23/18 (8) H/O mechanical aortic valve replacement Code(s): Z95.2 - Presence of prosthetic heart valve Status: Chronic <Zia Chaudhari - 06/29/18 20:00> (1) Fall Code(s): W19.XXXA - Unspecified fall, initial encounter Status: Acute Plan: Patient who fell at home after an episode of dizziness. He landed on his left side hitting a table on his way to the floor. These episodes of dizziness have been occurring for about 2 years. This could be a side effect of medication versus deconditioning after procedure versus cardiac etiology versus hypovolemia versus BPPV. Rib/chest pain improved per pt this morning and is using IS; mentioned fall and hit his head on baseboard at home, but there was no bleeding or contusion. - EKG- normal sinus rhythm - Echocardiogram to r/o cardiac etiology of dizziness - Rib XR due to point tenderness on exam :There are subtle nondisplaced fractures involving the posterior lateral eighth and ninth ribs with subtle cortical breaks. - Hold tamsulosin, oxybutinin -Continue midodrine -Incentive spirometry -Postivie Orthostatic vital signs -CT head w/o contrast--no acute findings - PT eval-recommend patient going to rehab. Will contact case management to have them assist with placement. (2) CKD (chronic kidney disease) Code(s): N18.9 - Chronic kidney disease, unspecified Status: Acute Plan: Patient has a history of CKD that is stable. Creatinine is 1.74 on admission; 1.39 this morning. -Continue to monitor -Avoid nephrotoxic medications (3) Hypertension, essential Code(s): I10 - Essential (primary) hypertension Status: Chronic Plan: -Continue Middaugh drain -Labetalol 100 mg PO and Clonidine 0.1 patch as needed for blood pressures greater than 150/90 -Control pain with Tylenol; pt cannot take Ibuprofen and prefers no opioids if possible (4) Anemia Code(s): D64.9 - Anemia, unspecified Status: Acute Plan: - Hemoglobin stable at 11.3->11.3 today -Monitor (5) Hypotension Code(s): I95.9 - Hypotension, unspecified Status: Acute Plan: BP 175/77 this morning. The patient did have positive orthostatic vital signs. - Hold tamsulosin -Continue midodrine - Monitor (6) History of abdominal aortic aneurysm (AAA) repair Code(s): Z98.890 - Other specified postprocedural states Status: Acute Plan: -Consult vascular surgery--Dr Wolf and they have signed off. (7) Urinary catheter complication Code(s): T83.9XXA - Unspecified complication of genitourinary prosthetic device , implant and graft, initial encounter Status: Acute Onset Date: ~05/23/18 Plan: - UA and reflex culture-- today prelim findings of >25K CFU of MRSA -Start Bactrim DS BID PO and wait for sensitivities to possibly change antibiotic. - Hold tamsulosin - Monitor I and O (8) H/O mechanical aortic valve replacement Code(s): Z95.2 - Presence of prosthetic heart valve Status: Chronic Plan: - Continue warfarin 5 mg daily - INR 2.8-> 2.6 today -Monitor daily INR in hospital; hold dose if >3.0 <Rhoda Tang - 06/29/18 09:33> - Assessment and Plan Fluids: PO fluids Electrolyte: monitor Nutrition: cardiac diet DVT PPx: continue home warfarin GI PPx: Continue home pantoprazole [place]-colace 1 tab BID Fleets enema PRN if constipation Pt SDW Dr Chaudhari <DeepakRhoda flores A - 06/29/18 09:41> - Attending Attestation The exam, history, and the medical decision-making described in the above note were completed with the assistance of the resident physician. I reviewed and agree with the findings presented. I attest that I had a [id number] encounter with the patient on the same day, and personally performed and documented my assessment and findings in the medical record. Patient had dramatically positive orthostatic blood pressures yesterday. We have asked that patient only have standing BPs measured for now and we will only treat those. Started midodrine today and will titrate up as needed if still so significantly positive on orthostatics tomorrow. MRSA UTI sensitive to macrobid: will monitor renal function to see if he can use this but less med interactions than bactrim. may also be able to use doxy based on tetracycline sensitivity. Discussed going back to rehab with family today. Hope to go back on Sunday. Continue to monitor pressures and response to abx for UTI while he is here. <Zia Chaudhari - 06/29/18 20:00>
[2018-06-29] MEDS ORDERED: Linezolid 600 MG Tablet PO SCH (10:15)
[2018-06-29] MEDS: Digoxin 125 MCG Tablet PO SCH (10:50)
[2018-06-29] MEDS: Senna/Docusate Sodium 8.6/50 MG Tablet PO SCH ×2 (10:50→21:10)
[2018-06-29] MEDS: Sodium Chloride 0.9% 2 ML Flush BID IV.FLUSH SCH ×2 (10:51→21:11)
[2018-06-29] MEDS: Nitrofurantoin Monohydrate-Macrocrystal 100 MG Capsule PO SCH ×2 (11:58→18:49)
[2018-06-30 06:21] LABS: Baso % (Auto) 0.8 % (0.0-2.0); Eos # (Auto) 0.1 th/mm3 (0.0-0.4); Eos % (Auto) 1.7 % (0.0-4.0); Hematocrit 33.1 % (39.0-51.0); Hemoglobin 11.2 gm/dL (13.0-17.0); Lymph # (Auto) 0.7 th/mm3 (1.0-4.8); Lymph % (Auto) 15.2 % (9.0-44.0); Mean Corpuscular HGB Conc 33.8 % (32.0-36.0); Mean Corpuscular Hemoglobin 31.9 pg (27.0-34.0); Mean Corpuscular Volume 94.5 fL (80.0-100.0); Mean Platelet Volume 7.3 fL (7.0-11.0); Mono # (Auto) 0.5 th/mm3 (0.0-0.9); Mono % (Auto) 9.5 % (0.0-8.0); Neut # (Auto) 3.6 th/mm3 (1.8-7.7); Neut % (Auto) 72.8 % (16.0-70.0); Platelet Count 230 th/mm3 (150-450); Red Blood Count 3.51 mil/mm3 (4.50-5.90); Red Cell Distribution Width 15.5 % (11.6-17.2); White Blood Count 4.9 th/mm3 (4.0-11.0)
[2018-06-30 06:45] LABS: Calcium 8.2 mg/dL (8.5-10.1); Carbon Dioxide 26.7 meq/L (21.0-32.0)
[2018-06-30] MEDS: Nitrofurantoin Monohydrate-Macrocrystal 100 MG Capsule PO SCH ×2 (08:53→17:00)
[2018-06-30] MEDS: Digoxin 125 MCG Tablet PO SCH (08:53)
[2018-06-30] MEDS: Senna/Docusate Sodium 8.6/50 MG Tablet PO SCH ×2 (08:54→23:22)
[2018-06-30] MEDS: Sodium Chloride 0.9% 2 ML Flush BID IV.FLUSH SCH ×2 (08:55→21:45)
--- NOTE | 2018-06-30 10:14 | P.PNFP ---
Subjective Interval history: No acute events overnight. The patient's standing blood pressure continues to be decreased at 77/47. All other vital signs were stable. Patient denied any falls or significant dizziness this morning. Patient is complaining of a cough/ sore throat this morning but denies any fever, chills, chest pain or shortness of breath. Patient had a bowel movement yesterday with no complications. <Dave Ruggiero - 06/30/18 11:45> Results - Labs Result diagrams: 06/30/18 05:55 06/30/18 05:55 <Zia Chaudhari - 06/30/18 12:31> Abnormal lab results 06/30/18 06/30/18 Range/Units 05:55 05:55 RBC 3.51 L (4.50-5.90) mil/mm3 Hgb 11.2 L (13.0-17.0) gm/dL Hct 33.1 L (39.0-51.0) % Neut % (Auto) 72.8 H (16.0-70.0) % [place]yer % (Auto) 9.5 H (0.0-8.0) % Lymph # (Auto) 0.7 L (1.0-4.8) th/mm3 Chloride 109 H (98-107) meq/L Anion Gap 4 L (5-15) meq/L Creatinine 1.39 H (0.60-1.30) mg/dL Estimated GFR 49 L (>89) mL/min Random Glucose 107 H (74-106) mg/dL Calcium 8.2 L (8.5-10.1) mg/dL Short CBC 06/30/18 Range/Units 05:55 WBC 4.9 (4.0-11.0) th/mm3 Hgb 11.2 L (13.0-17.0) gm/dL Hct 33.1 L (39.0-51.0) % Plt Count 230 (150-450) th/mm3 BMP 06/30/18 05:55 Sodium 140 Potassium 4.0 Chloride 109 H Carbon Dioxide 26.7 BUN 13 Creatinine 1.39 H Calcium 8.2 L <Zia Chaudhari - 06/30/18 12:31> Abnormal lab results 06/30/18 06/30/18 Range/Units 05:55 05:55 RBC 3.51 L (4.50-5.90) mil/mm3 Hgb 11.2 L (13.0-17.0) gm/dL Hct 33.1 L (39.0-51.0) % Neut % (Auto) 72.8 H (16.0-70.0) % [place]yer % (Auto) 9.5 H (0.0-8.0) % Lymph # (Auto) 0.7 L (1.0-4.8) th/mm3 Chloride 109 H (98-107) meq/L Anion Gap 4 L (5-15) meq/L Creatinine 1.39 H (0.60-1.30) mg/dL Estimated GFR 49 L (>89) mL/min Random Glucose 107 H (74-106) mg/dL Calcium 8.2 L (8.5-10.1) mg/dL Short CBC 06/30/18 Range/Units 05:55 WBC 4.9 (4.0-11.0) th/mm3 Hgb 11.2 L (13.0-17.0) gm/dL Hct 33.1 L (39.0-51.0) % Plt Count 230 (150-450) th/mm3 BMP 06/30/18 05:55 Sodium 140 Potassium 4.0 Chloride 109 H Carbon Dioxide 26.7 BUN 13 Creatinine 1.39 H Calcium 8.2 L <Dave Ruggiero B - 06/30/18 10:14> Physical Exam Vital signs: Vital Signs 06/29/18 16:00 06/29/18 20:00 06/30/18 00:00 Temperature 97.7 F 97.7 F 97.9 F Pulse Rate 96 H 78 70 Respiratory Rate 15 18 18 Blood Pressure 152/74 H 152/67 H 72/44 L Pulse Oximetry 95 92 L 92 L 06/30/18 04:00 06/30/18 08:40 Temperature 97.7 F Pulse Rate 90 74 Respiratory Rate 18 Blood Pressure 77/47 L Pulse Oximetry 94 L Intake & Output 06/29/18 06/30/18 06/30/18 18:59 06:59 18:59 Intake Total 480 / 480 480 / 480 Output Total 200 / 200 Balance 480 / 480 280 / 280 Intake: Oral 480 / 480 480 / 480 Output: Urine 200 / 200 Other: # Voids 3 1 Date of Last Bowel Movement 1106/29/18 06/29/18 <Zia Chaudhari K - 06/30/18 12:31> Vital Signs 06/29/18 12:00 06/29/18 16:00 06/29/18 20:00 Temperature 97.6 F 97.7 F 97.7 F Pulse Rate 77 96 H 78 Respiratory Rate 15 15 18 Blood Pressure 145/60 H 152/74 H 152/67 H Pulse Oximetry 95 95 92 L 06/30/18 00:00 06/30/18 04:00 Temperature 97.9 F 97.7 F Pulse Rate 70 90 Respiratory Rate 18 18 Blood Pressure 72/44 L 77/47 L Pulse Oximetry 92 L 94 L Intake & Output 06/29/18 06/30/18 06/30/18 18:59 06:59 18:59 Intake Total 480 / 480 480 / 480 Output Total 200 / 200 Balance 480 / 480 280 / 280 Intake: Oral 480 / 480 480 / 480 Output: Urine 200 / 200 Other: # Voids 3 1 Date of Last Bowel Movement 06/28/18 06/29/18 <Dave Ruggiero - 06/30/18 10:14> Narrative: GENERAL: Pleasant elderly man resting comfortably in hospital bed in no acute distress SKIN: No rashes. Cool and dry. HEAD: Atraumatic. Normocephalic. EYES: No scleral icterus. No injection or drainage. ENT: Nose without drainage. Airway patent. Oropharynx is benign with no exudates or significant erythema. NECK: Trachea midline. No lymphadenopathy. Supple, nontender. CARDIOVASCULAR: Regular rate and rhythm. Systolic mechanical click. CHEST: Left lower thoracic pain w/palpation, improved. RESPIRATORY: Clear to auscultation. Breath sounds equal bilaterally. No wheezes , rales, or rhonchi. GASTROINTESTINAL: Abdomen soft, diffusely tender to palpation on left side over his ribs. healing transverse scar over left side of abdomen, c/d/i, no evidence of seroma. well healed scar in the midline of abdomen. Positive bowel sounds, nondistended. MUSCULOSKELETAL: Extremities without edema. No calf tenderness. NEUROLOGICAL: Awake and alert. <Dave Ruggiero - 06/30/18 11:45> Assessment and Plan - Assessment (1) Fall Code(s): W19.XXXA - Unspecified fall, initial encounter Status: Acute (2) Hypotension Code(s): I95.9 - Hypotension, unspecified Status: Acute (3) CKD (chronic kidney disease) Code(s): N18.9 - Chronic kidney disease, unspecified Status: Acute (4) Hypertension, essential Code(s): I10 - Essential (primary) hypertension Status: Chronic (5) UTI (urinary tract infection) Code(s): N39.0 - Urinary tract infection, site not specified Status: Acute (6) Anemia Code(s): D64.9 - Anemia, unspecified Status: Acute (7) History of abdominal aortic aneurysm (AAA) repair Code(s): Z98.890 - Other specified postprocedural states Status: Acute (8) H/O mechanical aortic valve replacement Code(s): Z95.2 - Presence of prosthetic heart valve Status: Chronic <Zia Chaudhari - 06/30/18 12:31> (1) Fall Code(s): W19.XXXA - Unspecified fall, initial encounter Status: Acute Plan: Patient who fell at home after an episode of dizziness. He landed on his left side hitting a table on his way to the floor. These episodes of dizziness have been occurring for about 2 years. This could be a side effect of medication versus deconditioning after procedure versus cardiac etiology versus hypovolemia versus BPPV. Rib/chest pain improved per pt this morning and is using IS; mentioned fall and hit his head on baseboard at home, but there was no bleeding or contusion. - EKG- normal sinus rhythm - Rib XR due to point tenderness on exam :There are subtle nondisplaced fractures involving the posterior lateral eighth and ninth ribs with subtle cortical breaks. - Hold tamsulosin, oxybutinin -Incentive spirometry -Postivie Orthostatic vital signs -Increasing midodrine to 10 mg 3 times daily -CT head w/o contrast--no acute findings -PT eval-recommend patient going to rehab. Case management continuing to assist in placement (2) Hypotension Code(s): I95.9 - Hypotension, unspecified Status: Acute Plan: BP 77/47 this morning when standing. - Hold tamsulosin -Increasing midodrine as above -See plan for fall (3) CKD (chronic kidney disease) Code(s): N18.9 - Chronic kidney disease, unspecified Status: Acute Plan: Patient has a history of CKD that is stable. Creatinine is 1.74 on admission; 1.39 this morning. -Continue to monitor -Encouraging p.o. hydration -Avoid nephrotoxic medications (4) Hypertension, essential Code(s): I10 - Essential (primary) hypertension Status: Chronic Plan: -History of hypertension -Patient has significant orthostatic hypotension with blood pressures in the 70s over 40s when standing -Discontinuing antihypertensive agents at this time (5) UTI (urinary tract infection) Code(s): N39.0 - Urinary tract infection, site not specified Status: Acute Plan: Urinalysis on admission significant for large leukocyte esterase, 68 WBC Urine culture growing MRSA, resistant to Bactrim Patient started on Macrobid on 06/29 to complete 7-day course (6) Anemia Code(s): D64.9 - Anemia, unspecified Status: Acute Plan: - Hemoglobin stable at 11.3->11.2 today -Monitor (7) History of abdominal aortic aneurysm (AAA) repair Code(s): Z98.890 - Other specified postprocedural states Status: Acute Plan: -Consulted vascular surgery on admission--Dr Wolf and they have signed off. (8) H/O mechanical aortic valve replacement Code(s): Z95.2 - Presence of prosthetic heart valve Status: Chronic Plan: - Continue warfarin 5 mg daily - INR 2.8-> 2.6 on 06/29 -Monitor daily INR in hospital; hold dose if >3.0 <Dave Ruggiero - 06/30/18 11:19> - Assessment and Plan Fluids: PO fluids Electrolyte: monitor Nutrition: cardiac diet DVT PPx: continue home warfarin GI PPx: Continue home pantoprazole [place]-colace 1 tab BID Fleets enema PRN if constipation Pt SDW Dr Chaudhari <Dave Ruggiero - 06/30/18 11:45> - Attending Attestation The exam, history, and the medical decision-making described in the above note were completed with the assistance of the resident physician. I reviewed and agree with the findings presented. I attest that I had a [id number] encounter with the patient on the same day, and personally performed and documented my assessment and findings in the medical record. Feeling well today, reports that he is less confused. Will increase midodrine today for OS. Check STANDING BPs only while awake. Can let him sleep through the night. Will d/c tele today. Hope to go back to inpatient rehab tomorrow. <Zia Chaudhari - 06/30/18 12:31>
[2018-07-01 07:48] LABS: Hemoglobin 11.4 gm/dL (13.0-17.0); Mean Corpuscular HGB Conc 33.4 % (32.0-36.0); Mean Corpuscular Hemoglobin 31.6 pg (27.0-34.0); Mean Corpuscular Volume 94.6 fL (80.0-100.0); Mean Platelet Volume 7.9 fL (7.0-11.0); Platelet Count 226 th/mm3 (150-450); Red Cell Distribution Width 15.9 % (11.6-17.2); White Blood Count 4.8 th/mm3 (4.0-11.0)
[2018-07-01 07:49] LABS: Eos # (Auto) 0.2 th/mm3 (0.0-0.4); Eos % (Auto) 3.3 % (0.0-4.0); INR 3.5 Ratio; Lymph # (Auto) 1.1 th/mm3 (1.0-4.8); Lymph % (Auto) 22.4 % (9.0-44.0); Mono # (Auto) 0.6 th/mm3 (0.0-0.9); Mono % (Auto) 11.7 % (0.0-8.0); Neut % (Auto) 61.6 % (16.0-70.0); Prothrombin Time 35.1 sec (9.8-11.6)
[2018-07-01 08:12] LABS: Calcium 8.3 mg/dL (8.5-10.1); Carbon Dioxide 26.9 meq/L (21.0-32.0)
[2018-07-01] MEDS: Digoxin 125 MCG Tablet PO SCH (09:30)
[2018-07-01] MEDS: Nitrofurantoin Monohydrate-Macrocrystal 100 MG Capsule PO SCH ×2 (09:30→17:02)
[2018-07-01] MEDS: Senna/Docusate Sodium 8.6/50 MG Tablet PO SCH ×2 (09:30→22:25)
[2018-07-01] MEDS: Sodium Chloride 0.9% 2 ML Flush BID IV.FLUSH SCH ×2 (09:31→22:25)
[2018-07-01] MEDS ORDERED: Warfarin Consult Pharmacy OTHER PRN (11:49)
--- NOTE | 2018-07-01 11:58 | P.PNFP ---
Subjective Interval history: Pt feels better this morning. He states that he was able to stand for 2 minutes to have his BP checked without feeling like falling, but the PERL PROGRAMMER was unable to read his BP. He is eager to resume PT and would like to return to [facility] if possible. The pain in his left ribs is better - he has not requested any analgesics. He drank a full jug of water this morning. <Anna Rose U - 07/01/18 14:50> Results - Labs Result diagrams: 07/01/18 06:20 07/01/18 06:20 <Zia Chaudhari - 07/01/18 19:46> Abnormal lab results 07/01/18 07/01/18 07/01/18 Range/Units 06:20 06:20 06:20 RBC 3.60 L (4.50-5.90) mil/mm3 Hgb 11.4 L (13.0-17.0) gm/dL Hct 34.0 L (39.0-51.0) % [place] % (Auto) 11.7 H (0.0-8.0) % PT 35.1 H (9.8-11.6) sec Estimated GFR 53 L (>89) mL/min Random Glucose 109 H (74-106) mg/dL Calcium 8.3 L (8.5-10.1) mg/dL Short CBC 07/01/18 Range/Units 06:20 WBC 4.8 (4.0-11.0) th/mm3 Hgb 11.4 L (13.0-17.0) gm/dL Hct 34.0 L (39.0-51.0) % Plt Count 226 (150-450) th/mm3 [facility] 07/01/18 06:20 Sodium 139 Potassium 4.0 Chloride 107 Carbon Dioxide 26.9 BUN 13 Creatinine 1.30 Calcium 8.3 L <Zia Chaudhari - 07/01/18 19:46> Abnormal lab results 07/01/18 07/01/18 07/01/18 Range/Units 06:20 06:20 06:20 RBC 3.60 L (4.50-5.90) mil/mm3 Hgb 11.4 L (13.0-17.0) gm/dL Hct 34.0 L (39.0-51.0) % [place] % (Auto) 11.7 H (0.0-8.0) % PT 35.1 H (9.8-11.6) sec Estimated GFR 53 L (>89) mL/min Random Glucose 109 H (74-106) mg/dL Calcium 8.3 L (8.5-10.1) mg/dL Short CBC 07/01/18 Range/Units 06:20 WBC 4.8 (4.0-11.0) th/mm3 Hgb 11.4 L (13.0-17.0) gm/dL Hct 34.0 L (39.0-51.0) % Plt Count 226 (150-450) th/mm3 BMP 07/01/18 06:20 Sodium 139 Potassium 4.0 Chloride 107 Carbon Dioxide 26.9 BUN 13 Creatinine 1.30 Calcium 8.3 L <Anna Rose U - 07/01/18 11:58> Physical Exam Vital signs: Vital Signs 06/30/18 20:00 07/01/18 00:00 07/01/18 04:00 Temperature 97.6 F 97.6 F 97.1 F L Pulse Rate 65 113 H 104 H Respiratory Rate 20 20 18 Blood Pressure 71/39 L 77/46 L 65/39 L Pulse Oximetry 94 L 94 L 93 L 07/01/18 08:00 07/01/18 08:56 07/01/18 12:00 Temperature 98.4 F 97.8 F Pulse Rate 71 73 Respiratory Rate 19 21 Blood Pressure 133/63 153/67 H 73/39 L Pulse Oximetry 94 L 98 07/01/18 12:49 07/01/18 16:00 07/01/18 16:42 Temperature 97.4 F L Pulse Rate 80 Respiratory Rate 20 Blood Pressure 119/58 L 76/46 L 117/57 L Pulse Oximetry 98 Intake & Output 07/01/18 07/01/18 07/02/18 06:59 18:59 06:59 Intake Total 300 / 300 480 / 480 Output Total 250 / 250 Balance 300 / 300 230 / 230 Intake: Oral 300 / 300 480 / 480 Output: Urine 250 / 250 Other: # Voids 600 # Urine Diapers 2 Date of Last Bowel Movement 06/30/18 07/01/18 # Bowel Movements 1 <Zia Chaudhari - 11/26/18 19:46> Vital Signs 06/30/18 12:00 06/30/18 16:00 06/30/18 20:00 Temperature 97.6 F 97.6 F 97.6 F Pulse Rate 80 93 H 65 Respiratory Rate 16 14 20 Blood Pressure 95/50 L 86/51 L 71/39 L Pulse Oximetry 96 96 94 L 07/01/18 00:00 07/01/18 04:00 07/01/18 08:00 Temperature 97.6 F 97.1 F L 98.4 F Pulse Rate 113 H 104 H 66 Respiratory Rate 20 18 19 Blood Pressure 77/46 L 65/39 L 133/63 Pulse Oximetry 94 L 93 L 94 L 07/01/18 08:56 Temperature Pulse Rate Respiratory Rate Blood Pressure 153/67 H Pulse Oximetry Intake & Output 06/30/18 07/01/18 07/01/18 18:59 06:59 18:59 Intake Total 480 / 480 300 / 300 Output Total 500 / 500 Balance -20 / -20 300 / 300 Intake: Oral 480 / 480 300 / 300 Output: Urine 500 / 500 Other: # Voids 600 Date of Last Bowel Movement 06/29/18 06/30/18 <EkAnna campos U - 07/01/18 11:58> Narrative: GENERAL: Pleasant elderly man resting comfortably in hospital bed in no acute distress, at bedside SKIN: No rashes. Cool and dry. HEAD: Atraumatic. Normocephalic. EYES: No scleral icterus. No injection or drainage. ENT: Nose without drainage. Airway patent. Oropharynx is benign with no exudates or significant erythema. NECK: Trachea midline. No lymphadenopathy. Supple, nontender. CARDIOVASCULAR: Regular rate and rhythm. Systolic mechanical click. CHEST: Left lower thoracic pain w/palpation, improved. RESPIRATORY: Clear to auscultation. Breath sounds equal bilaterally. No wheezes , rales, or rhonchi. GASTROINTESTINAL: Abdomen soft, diffusely tender to palpation on left side over his ribs - improved compared to the previous day. healing transverse scar over left side of abdomen, c/d/i, no evidence of seroma. well healed scar in the midline of abdomen. Positive bowel sounds, nondistended. MUSCULOSKELETAL: Extremities without edema. No calf tenderness. NEUROLOGICAL: Awake and alert. <EkAnna campos U - 07/01/18 14:50> Assessment and Plan - Assessment (1) Fall Code(s): W19.XXXA - Unspecified fall, initial encounter Status: Acute (2) Hypotension Code(s): I95.9 - Hypotension, unspecified Status: Acute (3) CKD (chronic kidney disease) Code(s): N18.9 - Chronic kidney disease, unspecified Status: Acute (4) UTI (urinary tract infection) Code(s): N39.0 - Urinary tract infection, site not specified Status: Acute (5) Anemia Code(s): D64.9 - Anemia, unspecified Status: Acute (6) H/O mechanical aortic valve replacement Code(s): Z95.2 - Presence of prosthetic heart valve Status: Chronic <Zia Chaudhari - 07/01/18 19:46> (1) Fall Code(s): W19.XXXA - Unspecified fall, initial encounter Status: Acute Plan: Patient who fell at home after an episode of dizziness. He landed on his left side hitting a table on his way to the floor. These episodes of dizziness have been occurring for about 2 years. This could be a side effect of medication versus deconditioning after procedure versus cardiac etiology versus hypovolemia versus BPPV. Rib/chest pain improved per pt this morning and is using IS; mentioned fall and hit his head on baseboard at home, but there was no bleeding or contusion. - Rib XR due to point tenderness on exam :There are subtle nondisplaced fractures involving the posterior lateral eighth and ninth ribs with subtle cortical breaks. - Continue holding tamsulosin, oxybutynin -Incentive spirometry -Positive Orthostatic vital signs -Continue midodrine to 10 mg 3 times daily -PT eval- recommend patient going to rehab -Case management continuing to assist in placement - pt and prefer [facility] (2) Hypotension Code(s): I95.9 - Hypotension, unspecified Status: Acute Plan: BP as low as 65/39 at 4am this morning when standing. -Hold tamsulosin -Continue midodrine as above -Consider fludrocortisone if needed -See plan for fall (3) CKD (chronic kidney disease) Code(s): N18.9 - Chronic kidney disease, unspecified Status: Acute Plan: Patient has a history of CKD that is stable. Creatinine is 1.74 on admission; wnl for his age at 1.30 this morning. -Continue to monitor -Encouraging p.o. hydration -Avoid nephrotoxic medications (4) UTI (urinary tract infection) Code(s): N39.0 - Urinary tract infection, site not specified Status: Acute Plan: Urinalysis on admission significant for large leukocyte esterase, 68 WBC Urine culture growing MRSA, resistant to Bactrim Patient started on Macrobid 100mg PO BID on 06/29 to complete 7-day course - currently on day 3 (5) Anemia Code(s): D64.9 - Anemia, unspecified Status: Acute Plan: - Hemoglobin stable at 11.4 today -Continue to monitor (6) H/O mechanical aortic valve replacement Code(s): Z95.2 - Presence of prosthetic heart valve Status: Chronic Plan: - Continue warfarin 5 mg daily - INR 3.5-> 2.6 on 06/30 - Pharmacy consult <Anna Rose - 07/01/18 14:51> - Assessment and Plan Fluids: PO fluids Electrolyte: monitor Nutrition: cardiac diet DVT PPx: continue home warfarin GI PPx: Continue home pantoprazole [place]-colace 1 tab BID Fleets enema PRN if constipation Pt SDW Dr Chaudhari and Dr. Draper (PGY-1) <Anna Rose - 07/01/18 14:50> - Attending Attestation The exam, history, and the medical decision-making described in the above note were completed with the assistance of the resident physician. I reviewed and agree with the findings presented. I attest that I had a [id number] encounter with the patient on the same day, and personally performed and documented my assessment and findings in the medical record. Rib pain better today, still doing IS. He is still hypotensive when standing but orthostasis symptoms are much better. He stood up with PT and had BPs measured in session today but they did not work with him 2/2 knee pain. Will check AM cortisol tomorrow and if low may start fludricortisone if needed, otherwise if not symptomatic when standing, will see if he can get into [place]/ [facility]. consult already placed. <Zia Chaudhari - 07/01/18 19:46>
[2018-07-02 07:19] LABS: Hematocrit 32.7 % (39.0-51.0); Hemoglobin 11.1 gm/dL (13.0-17.0); Mean Corpuscular HGB Conc 34.1 % (32.0-36.0); Mean Corpuscular Hemoglobin 31.9 pg (27.0-34.0); Mean Corpuscular Volume 93.5 fL (80.0-100.0); Mean Platelet Volume 7.8 fL (7.0-11.0); Platelet Count 241 th/mm3 (150-450); Red Blood Count 3.49 mil/mm3 (4.50-5.90); Red Cell Distribution Width 15.5 % (11.6-17.2); White Blood Count 4.9 th/mm3 (4.0-11.0)
[2018-07-02 07:23] LABS: INR 2.8 Ratio; Prothrombin Time 28.7 sec (9.8-11.6)
[2018-07-02 07:42] LABS: Calcium 8.5 mg/dL (8.5-10.1); Carbon Dioxide 26.4 meq/L (21.0-32.0); Potassium 3.8 meq/L (3.5-5.1)
[2018-07-02] MEDS: Digoxin 125 MCG Tablet PO SCH (08:10)
[2018-07-02] MEDS: Nitrofurantoin Monohydrate-Macrocrystal 100 MG Capsule PO SCH ×2 (08:10→17:19)
[2018-07-02] MEDS: Sodium Chloride 0.9% 2 ML Flush BID IV.FLUSH SCH (08:10)
[2018-07-02] MEDS: Senna/Docusate Sodium 8.6/50 MG Tablet PO SCH (08:10)
--- NOTE | 2018-07-02 11:07 | P.PNFP ---
Subjective Interval history: Patient seen and examined at bedside this morning. His last blood pressure standing was at a systolic of 117. He was excited about that. He says that he is feeling better today. Still working on getting stronger, eating and drinking well. He states that his rib pain has improved dramatically today compared to admission. Today we are waiting on placement depending on [facility] for [facility]. He denies any chest pain, shortness of breath, problems with urination or defecation. All questions were answered at bedside. <Katerina Dueñas - 07/02/18 11:07> Results - Labs Result diagrams: 07/02/18 05:15 07/02/18 05:15 <Zia Chaudhari - 07/02/18 13:05> Abnormal lab results 07/02/18 07/02/18 07/02/18 Range/Units 05:15 05:15 05:15 RBC 3.49 L (4.50-5.90) mil/mm3 Hgb 11.1 L (13.0-17.0) gm/dL Hct 32.7 L (39.0-51.0) % PT 28.7 H (9.8-11.6) sec Estimated GFR 55 L (>89) mL/min Short CBC 07/02/18 Range/Units 05:15 WBC 4.9 (4.0-11.0) th/mm3 Hgb 11.1 L (13.0-17.0) gm/dL Hct 32.7 L (39.0-51.0) % Plt Count 241 (150-450) th/mm3 [facility] 07/02/18 05:15 Sodium 140 Potassium 3.8 Chloride 107 Carbon Dioxide 26.4 BUN 16 Creatinine 1.25 Calcium 8.5 <Zia Chaudhari - 07/02/18 13:05> Abnormal lab results 07/02/18 07/02/18 07/02/18 Range/Units 05:15 05:15 05:15 RBC 3.49 L (4.50-5.90) mil/mm3 Hgb 11.1 L (13.0-17.0) gm/dL Hct 32.7 L (39.0-51.0) % PT 28.7 H (9.8-11.6) sec Estimated GFR 55 L (>89) mL/min Short CBC 07/02/18 Range/Units 05:15 WBC 4.9 (4.0-11.0) th/mm3 Hgb 11.1 L (13.0-17.0) gm/dL Hct 32.7 L (39.0-51.0) % Plt Count 241 (150-450) th/mm3 [facility] 07/02/18 05:15 Sodium 140 Potassium 3.8 Chloride 107 Carbon Dioxide 26.4 BUN 16 Creatinine 1.25 Calcium 8.5 <Katerina Dueñas - 07/02/18 11:07> Physical Exam Vital signs: Vital Signs 07/01/18 16:00 07/01/18 16:42 07/01/18 20:00 Temperature 97.4 F L 97.7 F Pulse Rate 80 75 Respiratory Rate 20 20 Blood Pressure 76/46 L 117/57 L 189/81 H Pulse Oximetry 98 95 07/02/18 00:00 07/02/18 08:00 07/02/18 12:00 Temperature 97.3 F L 97.7 F 97.4 F L Pulse Rate 88 75 87 Respiratory Rate 18 16 18 Blood Pressure 179/79 H 117/45 L 102/56 L Pulse Oximetry 95 93 L 94 L Intake & Output 07/01/18 07/02/18 07/02/18 18:59 06:59 18:59 Intake Total 480 / 480 710 / 710 Output Total 250 / 250 450 / 450 Balance 230 / 230 260 / 260 Weight 79.1 kg Intake: Oral 480 / 480 710 / 710 Output: Urine 250 / 250 450 / 450 Other: # Incontinent Voids 1 # Urine Diapers 2 Date of Last Bowel Movement 07/01/18 07/01/18 07/01/18 # Bowel Movements 1 <Zia Chaudhari - 07/02/18 13:05> Vital Signs 07/01/18 12:00 07/01/18 12:49 07/01/18 16:00 Temperature 97.8 F 97.4 F L Pulse Rate 73 80 Respiratory Rate 21 20 Blood Pressure 73/39 L 119/58 L 76/46 L Pulse Oximetry 98 98 07/01/18 16:42 07/01/18 20:00 07/02/18 00:00 Temperature 97.7 F 97.3 F L Pulse Rate 75 88 Respiratory Rate 20 18 Blood Pressure 117/57 L 189/81 H 179/79 H Pulse Oximetry 95 95 07/02/18 08:00 Temperature 97.7 F Pulse Rate 75 Respiratory Rate 16 Blood Pressure 117/45 L Pulse Oximetry 93 L Intake & Output 07/01/18 07/02/18 07/02/18 18:59 06:59 18:59 Intake Total 480 / 480 710 / 710 Output Total 250 / 250 450 / 450 Balance 230 / 230 260 / 260 Weight 79.1 kg Intake: Oral 480 / 480 710 / 710 Output: Urine 250 / 250 450 / 450 Other: # Incontinent Voids 1 # Urine Diapers 2 Date of Last Bowel Movement 07/01/18 07/01/18 07/01/18 # Bowel Movements 1 <Katerina Dueñas - 07/02/18 11:07> Narrative: GENERAL: Pleasant elderly man resting comfortably in hospital bed in no acute distress, at bedside SKIN: No rashes. Cool and dry. HEAD: Atraumatic. Normocephalic. EYES: No scleral icterus. No injection or drainage. ENT: Nose without drainage. Airway patent. Oropharynx is benign with no exudates or significant erythema. NECK: Trachea midline. No lymphadenopathy. Supple, nontender. CARDIOVASCULAR: Regular rate and rhythm. Systolic mechanical click. CHEST: Left lower thoracic pain w/palpation, improved. RESPIRATORY: Anterior Auscultation. Clear bilaterally. GASTROINTESTINAL: Abdomen soft, diffusely tender to palpation on left side over his ribs - improved compared to the previous day. healing transverse scar over left side of abdomen, c/d/i, no evidence of seroma. well healed scar in the midline of abdomen. Positive bowel sounds, nondistended. MUSCULOSKELETAL: Extremities without edema. No calf tenderness. NEUROLOGICAL: Awake and alert. <Katerina Dueñas - 07/02/18 11:07> Assessment and Plan - Assessment (1) Fall Code(s): W19.XXXA - Unspecified fall, initial encounter Status: Acute (2) Hypotension Code(s): I95.9 - Hypotension, unspecified Status: Acute (3) CKD (chronic kidney disease) Code(s): N18.9 - Chronic kidney disease, unspecified Status: Acute (4) UTI (urinary tract infection) Code(s): N39.0 - Urinary tract infection, site not specified Status: Acute (5) Anemia Code(s): D64.9 - Anemia, unspecified Status: Acute (6) H/O mechanical aortic valve replacement Code(s): Z95.2 - Presence of prosthetic heart valve Status: Chronic <Zia Chaudhari - 07/02/18 13:05> (1) Fall Code(s): W19.XXXA - Unspecified fall, initial encounter Status: Acute Plan: Patient who fell at home after an episode of dizziness. He landed on his left side hitting a table on his way to the floor. These episodes of dizziness have been occurring for about 2 years. This could be a side effect of medication versus deconditioning after procedure versus cardiac etiology versus hypovolemia versus BPPV. Rib/chest pain improved per pt this morning and is using IS; mentioned fall and hit his head on baseboard at home, but there was no bleeding or contusion. - Rib XR due to point tenderness on exam :There are subtle nondisplaced fractures involving the posterior lateral eighth and ninth ribs with subtle cortical breaks. -Continue holding tamsulosin, oxybutynin -Incentive spirometry -Positive Orthostatic vital signs -Continue midodrine to 10 mg 3 times daily -PT eval- recommend patient going to rehab -Case management continuing to assist in placement - pt and prefer [facility] (2) Hypotension Code(s): I95.9 - Hypotension, unspecified Status: Acute Plan: Improving: Last standing blood pressure 117/45 -Thigh-high compression stockings ordered. -Hold tamsulosin -Continue midodrine as above -See plan for fall (3) CKD (chronic kidney disease) Code(s): N18.9 - Chronic kidney disease, unspecified Status: Acute Plan: Patient has a history of CKD that is stable. Creatinine is 1.74 on admission; wnl for his age at 1.25 this morning. -Continue to monitor -Encouraging p.o. hydration -Avoid nephrotoxic medications (4) UTI (urinary tract infection) Code(s): N39.0 - Urinary tract infection, site not specified Status: Acute Plan: Urinalysis on admission significant for large leukocyte esterase, 68 WBC Urine culture growing MRSA, resistant to Bactrim Patient started on Macrobid 100mg PO BID on 06/29 to complete 7-day course - currently on day 4 (5) Anemia Code(s): D64.9 - Anemia, unspecified Status: Acute Plan: - Hemoglobin stable at 11.1 today -Continue to monitor (6) H/O mechanical aortic valve replacement Code(s): Z95.2 - Presence of prosthetic heart valve Status: Chronic Plan: -Held warfarin yesterday. - INR 2.8 today -> 2.6 on 06/30 - Pharmacy consult. Appreciate Management. <Katerina Dueñas - 07/02/18 11:08> - Assessment and Plan Fluids: PO fluids Electrolyte: monitor Nutrition: cardiac diet DVT PPx: On warfarin. Held yesterday. INR 2.8 today. Pharmacy Managing. GI PPx: Continue home pantoprazole [place]-colace 1 tab BID Fleets enema PRN if constipation Pt SDW Dr Chaudhari and Dr. Ruggiero <Katerina Dueñas - 07/02/18 11:07> - Attending Attestation The exam, history, and the medical decision-making described in the above note were completed with the assistance of the resident physician. I reviewed and agree with the findings presented. I attest that I had a [id number] encounter with the patient on the same day, and personally performed and documented my assessment and findings in the medical record. He is still having a little balance trouble but he is not light headed and symptomatic upon standing now. Standing systolic BP this AM 117 which was much higher than it had been. AM cortsiol was below 20 today so if needed in the future could try low dose fludricortisone but his supine BPs are still high into the 180s so I do not want to push BP any higher than we have to for him not to be orthostatic and be able to complete therapy he needs. Discussed this with family. They are really hoping that he can go back to [place]. There is a back up that has accepted him if needed but hope to get to [place] as he could really benefit from there therapy. Discussed non pharm re-orientation and sleep measures to help with night time delirium as I do not want to start any medications for this if we dont absolutely need to. <Zia Chaudhari - 07/02/18 13:05>
[2018-07-02 12:49] VITALS: BP 102/56; PULSE 87; RESP 18; TEMP 97.4; O2SAT 94
== END 2018-07-02 17:40 ==
LOC: NEDA 12:37 → NEPE 12:37 → N04 19:00 → NEDA 19:10
PROVIDERS: ADMIT Family Medicine; ATTEND Family Medicine